=== PATIENT | female | born 1975 | race Caucasian/White ===

== ENCOUNTER 2017-07-06 02:06 | Emergency (ER) | payer MEDICARE, MEDICAID ==
[~2017-07-06] VITALS: Ht 175.3 cm; Wt 161.8 kg
[~2017-07-06 02:06] MED LIST: ABIL15TA; COGE1INJ; GLUC500T; HYDR25TA8; NABU500T; SYNT75TA; TRAZ50TA; Topiramate
[2017-07-06] MEDS ORDERED: FARX1TAB3 PO (02:21)
[2017-07-06 03:57] VITALS: BP 168/84
--- NOTE | 2017-07-06 08:40 | REP ---
Clinical: Trauma. Technique: AP view of the pelvis with neutral and frog lateral views of the right hip. Findings: No acute fracture dislocation. Skeletal structures, joint spaces, and surrounding soft tissues are intact. Mild chronic degenerative changes involving the left hip noted. Surrounding soft tissues unremarkable. Impression: No acute fracture or dislocation Signed by Barrett Hines MD 07/06/2017 08:32 A
== END 2017-07-06 03:58 | disposition home or self-care (01) ==
LOC: M ED 02:06
DX: S76.011A Strain of muscle, fascia and tendon of right hip, initial encounter (principal); W01.0XXA Fall on same level from slipping, tripping and stumbling without subsequent striking against object, initial encounter; Y92.9 Unspecified place or not applicable; Y93.01 Activity, walking, marching and hiking; Y99.9 Unspecified external cause status; F25.9 Schizoaffective disorder, unspecified; Z87.891 Personal history of nicotine dependence; Z79.899 Other long term (current) drug therapy; Z91.040 Latex allergy status; Z88.8 Allergy status to other drugs, medicaments and biological substances

== ENCOUNTER → 2017-10-23 | Outpatient (CLI) | payer MEDICARE, MEDICAID | LOC: M WHC 14:37 | DX: Z12.31 Encounter for screening mammogram for malignant neoplasm of breast (principal) | CPT/HCPCS: 77067 ==

== ENCOUNTER → 2018-01-21 | Outpatient (CLI) | payer MEDICARE, MEDICAID | LOC: M WHC 10:57 | DX: N83.202 Unspecified ovarian cyst, left side (principal); E66.01 Morbid (severe) obesity due to excess calories; N88.8 Other specified noninflammatory disorders of cervix uteri | CPT/HCPCS: 76830 ==

== ENCOUNTER 2018-05-26 20:23 | Emergency (ER) | payer MEDICARE, MEDICAID ==
[2018-05-26] MEDS: OXYCODONE/APAP 5MG/325MG(BULK FOR ED) 1 TABLET PO (22:06)
== END 2018-05-26 22:11 | disposition home or self-care (01) ==
LOC: M ED 20:23
DX: K08.89 Other specified disorders of teeth and supporting structures (principal); I10 Essential (primary) hypertension; Z87.891 Personal history of nicotine dependence; Z88.8 Allergy status to other drugs, medicaments and biological substances; Z91.040 Latex allergy status; Z79.899 Other long term (current) drug therapy; Z79.890 Hormone replacement therapy
CPT/HCPCS: 99283

== ENCOUNTER → 2018-08-07 | Outpatient (CLI) | payer MEDICARE ==
[~2018-08-07] MED LIST changes: +FARX1TAB3 PO; +Farxiga; +IBUP-1022 PO; +PERC5TAB12 PO; +VERA24TASA; +WELLTAB38 PO
[2018-08-07 13:10] LABS: ALBUMIN 3.4 GM/DL (3.2-5.2); ALT/SGPT 21 U/L (12-78); BILIRUBIN,TOTAL 0.3 MG/DL (0.2-1.0); BLOOD UREA NITROGEN 14 MG/DL (7-18); CALCIUM LEVEL 8.2 MG/DL (8.5-10.1); CARBON DIOXIDE LEVEL 25 MEQ/L (21-32); CHLORIDE LEVEL 110 MEQ/L (98-107); CHOLESTEROL LEVEL 137 MG/DL (<200); CHOLESTEROL RISK RATIO 3.113 (<5); GLOMERULAR FILTRATION RATE > 60.0 (>58); GLUCOSE, FASTING 103 MG/DL (70-100); HDL CHOLESTEROL 44 MG/DL (>40); LDL CHOLESTEROL 63 MG/DL (<100); NON-HDL-C 93 MG/DL; POTASSIUM SERUM 4.3 MEQ/L (3.5-5.1); SODIUM LEVEL 142 MEQ/L (136-145); THYROID STIMULATING HORMONE 0.891 uIU/ML (0.358-3.740); TOTAL PROTEIN 6.4 GM/DL (6.4-8.2); TRIGLYCERIDES LEVEL 148 MG/DL (<150)
[2018-08-07 15:32] LABS: HEMOGLOBIN A1c 6.5 %
== END ==
LOC: M WUC 09:51
PROVIDERS: ATTEND Internal Medicine
DX: I10 Essential (primary) hypertension (principal); E11.9 Type 2 diabetes mellitus without complications; E03.9 Hypothyroidism, unspecified

== ENCOUNTER → 2018-11-05 | Outpatient (REF) | payer MEDICARE, MEDICAID ==
[2018-11-07 14:21] LABS: HPV HYBRID CAPTURE II Positive (Negative)
== END ==
LOC: M SFHCWAGY 10:00
PROVIDERS: ATTEND Nurse Practitioner Women's Health
DX: Z12.4 Encounter for screening for malignant neoplasm of cervix (principal); R87.610 Atypical squamous cells of undetermined significance on cytologic smear of cervix (ASC-US)
CPT/HCPCS: 87624; G0123; G0463

== ENCOUNTER → 2018-11-08 | Outpatient (CLI) | payer MEDICARE, MEDICAID ==
[2018-11-08 10:03] LABS: ALBUMIN 3.3 GM/DL (3.2-5.2); ALT/SGPT 22 U/L (12-78); BILIRUBIN,TOTAL 0.2 MG/DL (0.2-1.0); BLOOD UREA NITROGEN 15 MG/DL (7-18); CALCIUM LEVEL 8.3 MG/DL (8.5-10.1); CARBON DIOXIDE LEVEL 26 MEQ/L (21-32); CHLORIDE LEVEL 109 MEQ/L (98-107); CHOLESTEROL LEVEL 150 MG/DL (<200); CHOLESTEROL RISK RATIO 3.409 (<5); CREATININE FOR GFR 0.61 MG/DL (0.55-1.30); GLOMERULAR FILTRATION RATE > 60.0 (>58); GLUCOSE, FASTING 112 MG/DL (70-100); HDL CHOLESTEROL 44 MG/DL (>40); LDL CHOLESTEROL 84 MG/DL (<100); NON-HDL-C 106 MG/DL; SODIUM LEVEL 142 MEQ/L (136-145); TOTAL PROTEIN 6.4 GM/DL (6.4-8.2); TRIGLYCERIDES LEVEL 112 MG/DL (<150)
[2018-11-08 11:12] LABS: HEMOGLOBIN A1c 6.3 %
== END ==
LOC: M WUC 08:21
PROVIDERS: ATTEND Internal Medicine
DX: I10 Essential (primary) hypertension (principal); E11.9 Type 2 diabetes mellitus without complications; E03.9 Hypothyroidism, unspecified; E78.5 Hyperlipidemia, unspecified

== ENCOUNTER → 2018-11-08 | Outpatient (REF) | payer MEDICARE, MEDICAID | LOC: M SFHCWAGY 15:26 | PROVIDERS: ATTEND Nurse Practitioner Women's Health | DX: R87.612 Low grade squamous intraepithelial lesion on cytologic smear of cervix (LGSIL) (principal); R87.810 Cervical high risk human papillomavirus (HPV) DNA test positive ==

== ENCOUNTER 2019-01-26 21:08 | Emergency (ER) | payer MEDICARE, MEDICAID ==
[~2019-01-26] VITALS: Ht 172.7 cm; Wt 145.4 kg
[2019-01-26 21:08] VITALS: BP 146/89
== END 2019-01-26 23:12 | disposition left against medical advice (07) ==
LOC: M ED 21:08
DX: K08.89 Other specified disorders of teeth and supporting structures (principal); Z53.21 Procedure and treatment not carried out due to patient leaving prior to being seen by health care provider

== ENCOUNTER 2019-02-06 07:48 | Emergency (ER) | payer MEDICARE, MEDICAID ==
[~2019-02-06] VITALS: Ht 175.3 cm; Wt 159.6 kg
[2019-02-06 07:49] VITALS: BP 153/91
[2019-02-06] MEDS ORDERED: CIPR500T3 (07:57)
[2019-02-06] MEDS ORDERED: OFLOSO OTIC (08:14)
[2019-02-06] MEDS ORDERED: NAPR-837 PO (08:16)
== END 2019-02-06 08:41 | disposition home or self-care (01) ==
LOC: M ED 07:48
DX: H60.92 Unspecified otitis externa, left ear (principal); I10 Essential (primary) hypertension; J45.909 Unspecified asthma, uncomplicated; E07.9 Disorder of thyroid, unspecified; E28.2 Polycystic ovarian syndrome; E78.00 Pure hypercholesterolemia, unspecified; F20.9 Schizophrenia, unspecified; Z79.899 Other long term (current) drug therapy; Z88.8 Allergy status to other drugs, medicaments and biological substances; Z91.040 Latex allergy status

== ENCOUNTER → 2019-02-25 | Outpatient (CLI) | payer MEDICARE, MEDICAID ==
[~2019-02-25] MED LIST changes: +CIPR500T3; +NAPR-837 PO; +OFLOSO OTIC
[2019-02-25 10:20] LABS: ALBUMIN 3.2 GM/DL (3.2-5.2); ALT/SGPT 26 U/L (12-78); BILIRUBIN,TOTAL 0.2 MG/DL (0.2-1.0); BLOOD UREA NITROGEN 12 MG/DL (7-18); CALCIUM LEVEL 8.3 MG/DL (8.5-10.1); CARBON DIOXIDE LEVEL 24 MEQ/L (21-32); CHLORIDE LEVEL 110 MEQ/L (98-107); CHOLESTEROL LEVEL 161 MG/DL (<200); CREATININE FOR GFR 0.58 MG/DL (0.55-1.30); GLOMERULAR FILTRATION RATE > 60.0 (>58); GLUCOSE, FASTING 124 MG/DL (70-100); HDL CHOLESTEROL 46 MG/DL (>40); LDL CHOLESTEROL 78 MG/DL (<100); NON-HDL-C 115 MG/DL; POTASSIUM SERUM 4.3 MEQ/L (3.5-5.1); SODIUM LEVEL 140 MEQ/L (136-145); TOTAL PROTEIN 6.5 GM/DL (6.4-8.2); TRIGLYCERIDES LEVEL 184 MG/DL (<150)
[2019-02-25 11:36] LABS: HEMOGLOBIN A1c 6.6 %
[2019-02-25 16:26] LABS: MALB URINE SIEMENS 23.6 MG/L; MAU/CREAT RATIO 13.4 MCG/MG (0.0-30.0)
== END ==
LOC: M WUC 08:10
PROVIDERS: ATTEND Internal Medicine
DX: I10 Essential (primary) hypertension (principal); E11.9 Type 2 diabetes mellitus without complications; E03.9 Hypothyroidism, unspecified; E78.5 Hyperlipidemia, unspecified

== ENCOUNTER → 2019-02-26 | Outpatient (CLI) | payer MEDICARE, MEDICAID ==
--- NOTE | 2019-02-26 15:14 | REPMRS ---
Patient History The patient states she had a clinical breast exam in 08/2018. Patient is nulliparous. Family history of breast cancer in paternal aunt, prostate cancer and colorectal cancer in paternal uncle, breast cancer in maternal aunt, ovarian cancer in maternal aunt. No Hormone Replacement Therapy Digital Woman Screen Mammo: February 26, 2019 - Exam #: [id number] Bilateral CC and MLO view(s) were taken. Technologist: Tammy Blanc, Technologist Prior study comparison: October 23, 2017, digital woman screen mammo performed at [facility]. July 28, 2016, digital woman screen mammo performed at [facility]. FINDINGS: There are scattered fibroglandular densities. There has been no change in the appearance of the mammogram from the prior studies. There is a mild amount of scattered fibroglandular density which is fairly symmetric. There is no interval development of dominant mass, architectural distortion, or grouped microcalcification suggestive of malignancy. 3-D tomosynthesis shows no additional findings. Assessment: BI-RADS/ACR category 1 mammogram. Negative Mammogram. Recommendation Breast MRI of both breasts in 6 months. Routine screening mammogram of both breasts in 1 year (for women over age 40). This patient's Lifetime Breast Cancer Risk is estimated at 24.2 %. Annual screening Breast MRI scanniing is recommended for patient's whose lifetime risk assessment is over 20%. This mammogram was interpreted with the aid of an FDA-approved computer-aided dectection system. Electronically Signed By: David Borja MD 02/26/19 1346
== END ==
LOC: M WHC 08:51
PROVIDERS: ATTEND Nurse Practitioner Women's Health
DX: Z12.31 Encounter for screening mammogram for malignant neoplasm of breast (principal)

== ENCOUNTER → 2019-06-09 | Outpatient (CLI) | payer MEDICARE, MEDICAID ==
[2019-06-09 12:41] LABS: BASO % 0.6 % (0.0-1.0); EOS # 0.2 10^3/uL (0.0-0.5); EOS % 2.9 % (0.0-3.0); HEMATOCRIT 42.8 % (36.0-47.0); LYMPH # 2.2 10^3/uL (1.5-5.0); LYMPH % 30.7 % (24.0-44.0); MEAN CORPUSCULAR HEMOGLOBIN 27.6 pg (27.0-33.0); MEAN CORPUSCULAR HGB CONC 30.4 g/dl (32.0-36.5); MEAN CORPUSCULAR VOLUME 90.9 fl (80.0-96.0); MONO # 0.4 10^3/uL (0.0-0.8); MONO % 5.8 % (0.0-5.0); NEUTROPHILS # 4.3 10^3/uL (1.5-8.5); NEUTROPHILS % 59.7 % (36.0-66.0); PLATELET COUNT, AUTOMATED 292 10^3/uL (150-450); RED BLOOD COUNT 4.71 10^6/uL (4.00-5.40); WHITE BLOOD COUNT 7.1 10^3/uL (4.0-10.0)
[2019-06-09 12:55] LABS: ALT/SGPT 25 U/L (12-78); BILIRUBIN,TOTAL 0.3 MG/DL (0.2-1.0); BLOOD UREA NITROGEN 12 MG/DL (7-18); CALCIUM LEVEL 9.1 MG/DL (8.5-10.1); CARBON DIOXIDE LEVEL 27 MEQ/L (21-32); CHLORIDE LEVEL 110 MEQ/L (98-107); CHOLESTEROL LEVEL 148 MG/DL (<200); CREATININE FOR GFR 0.67 MG/DL (0.55-1.30); GLOMERULAR FILTRATION RATE > 60.0 (>58); GLUCOSE, FASTING 105 MG/DL (70-100); POTASSIUM SERUM 4.1 MEQ/L (3.5-5.1); SODIUM LEVEL 141 MEQ/L (136-145); TRIGLYCERIDES LEVEL 136 MG/DL (<150)
[2019-06-09 12:56] LABS: ALBUMIN 3.5 GM/DL (3.2-5.2); CHOLESTEROL RISK RATIO 3.148 (<5); HDL CHOLESTEROL 47 MG/DL (>40); LDL CHOLESTEROL 74 MG/DL (<100); NON-HDL-C 101 MG/DL; TOTAL PROTEIN 6.5 GM/DL (6.4-8.2)
[2019-06-09 13:42] LABS: HEMOGLOBIN A1c 6.8 %
== END ==
LOC: M WUC 10:02
PROVIDERS: ATTEND Internal Medicine
DX: I10 Essential (primary) hypertension (principal); E78.5 Hyperlipidemia, unspecified; E03.9 Hypothyroidism, unspecified; E11.9 Type 2 diabetes mellitus without complications

== ENCOUNTER → 2019-09-12 | Outpatient (CLI) | payer MEDICARE ==
[2019-09-12 12:47] LABS: BASO % 0.4 % (0.0-1.0); EOS # 0.3 10^3/uL (0.0-0.5); EOS % 3.5 % (0.0-3.0); HEMATOCRIT 43.4 % (36.0-47.0); HEMOGLOBIN 12.7 g/dl (12.0-15.5); LYMPH # 2.6 10^3/uL (1.5-5.0); MEAN CORPUSCULAR HEMOGLOBIN 26.6 pg (27.0-33.0); MEAN CORPUSCULAR HGB CONC 29.3 g/dl (32.0-36.5); MEAN CORPUSCULAR VOLUME 90.8 fl (80.0-96.0); MONO # 0.4 10^3/uL (0.0-0.8); MONO % 5.4 % (0.0-5.0); NEUTROPHILS # 3.9 10^3/uL (1.5-8.5); NEUTROPHILS % 54.3 % (36.0-66.0); PLATELET COUNT, AUTOMATED 292 10^3/uL (150-450); RED BLOOD COUNT 4.78 10^6/uL (4.00-5.40); WHITE BLOOD COUNT 7.2 10^3/uL (4.0-10.0)
[2019-09-12 13:06] LABS: HEMOGLOBIN A1c 6.9 %
[2019-09-12 13:20] LABS: ALBUMIN 3.3 GM/DL (3.2-5.2); ALT/SGPT 21 U/L (12-78); BILIRUBIN,TOTAL 0.2 MG/DL (0.2-1.0); BLOOD UREA NITROGEN 10 MG/DL (7-18); CALCIUM LEVEL 8.2 MG/DL (8.5-10.1); CARBON DIOXIDE LEVEL 28 MEQ/L (21-32); CHLORIDE LEVEL 106 MEQ/L (98-107); CHOLESTEROL LEVEL 148 MG/DL (<200); CHOLESTEROL RISK RATIO 4.111 (<5); GLOMERULAR FILTRATION RATE > 60.0 (>58); GLUCOSE, FASTING 115 MG/DL (70-100); HDL CHOLESTEROL 36 MG/DL (>40); LDL CHOLESTEROL 87 MG/DL (<100); NON-HDL-C 112 MG/DL; POTASSIUM SERUM 4.6 MEQ/L (3.5-5.1); SODIUM LEVEL 140 MEQ/L (136-145); TOTAL PROTEIN 6.6 GM/DL (6.4-8.2); TRIGLYCERIDES LEVEL 127 MG/DL (<150)
== END ==
LOC: M WUC 08:59
PROVIDERS: ATTEND Internal Medicine
DX: E78.5 Hyperlipidemia, unspecified (principal); E03.9 Hypothyroidism, unspecified; E11.9 Type 2 diabetes mellitus without complications; I10 Essential (primary) hypertension

== ENCOUNTER → 2020-11-24 | Outpatient (CLI) | payer MEDICARE, MEDICAID, OTHER ==
--- NOTE | 2020-11-24 13:03 | REPMRS ---
Patient History The patient states she had a clinical breast exam in 11/2020 Patient is nulliparous. Family history of breast cancer in paternal aunt, prostate cancer and colorectal cancer in paternal uncle, breast cancer in maternal aunt, ovarian cancer in maternal aunt, ovarian cancer at age 58 in maternal aunt. No Hormone Replacement Therapy Digital Woman Screen Mammo: November 24, 2020 - Exam #: [id number] Bilateral CC and MLO view(s) were taken. Technologist: Massiel Bello, Technologist Prior study comparison: February 26, 2019, bilateral digital woman screen mammo performed at [facility]. October 23, 2017, digital woman screen mammo performed at [facility]. July 28, 2016, digital woman screen mammo performed at [facility]. FINDINGS: The breast tissue is almost entirely fat. The Volpara volumetric breast density category is: A. There has been no change in the appearance of the mammogram from the prior studies. There is no interval development of dominant mass, architectural distortion, or grouped microcalcification typical of malignancy. 3-D tomosynthesis shows no additional findings. Assessment: BI-RADS/ACR category 1 mammogram. Negative Mammogram. Recommendation Breast MRI of both breasts in 6 months. Routine screening mammogram of both breasts in 1 year (for women over age 40).Annual screening Breast MRI scanniing is recommended for patient's whose lifetime risk assessment is over 20%. This patient's [facility] Lifetime Breast Cancer RIsk is estimated at 24.0 %. This mammogram was interpreted with the aid of an FDA-approved computer-aided dectection system. Electronically Signed By: David Borja MD 11/24/20 2111
== END ==
LOC: M WHC 10:11
PROVIDERS: ATTEND Nurse Practitioner Women's Health
DX: Z12.4 Encounter for screening for malignant neoplasm of cervix (principal); Z12.31 Encounter for screening mammogram for malignant neoplasm of breast; R87.618 Other abnormal cytological findings on specimens from cervix uteri
CPT/HCPCS: 77063; 77067; 87624; G0123; G0463

== ENCOUNTER → 2020-11-29 | Outpatient (REF) | payer MEDICARE ==
[2020-11-29 17:58] LABS: ALBUMIN 3.6 GM/DL (3.2-5.2); ALT/SGPT 19 U/L (12-78); BILIRUBIN,TOTAL 0.2 MG/DL (0.2-1.0); BLOOD UREA NITROGEN 17 MG/DL (7-18); CALCIUM LEVEL 8.9 MG/DL (8.5-10.1); CARBON DIOXIDE LEVEL 29 MEQ/L (21-32); CHLORIDE LEVEL 105 MEQ/L (98-107); CHOLESTEROL LEVEL 166 MG/DL (<200); CHOLESTEROL RISK RATIO 3.074 (<5); CREATININE FOR GFR 0.54 MG/DL (0.55-1.30); GLOMERULAR FILTRATION RATE > 60.0 (>58); GLUCOSE, FASTING 140 MG/DL (70-100); HDL CHOLESTEROL 54 MG/DL (>40); LDL CHOLESTEROL 86 MG/DL (<100); NON-HDL-C 112 MG/DL; POTASSIUM SERUM 4.4 MEQ/L (3.5-5.1); SODIUM LEVEL 140 MEQ/L (136-145); TOTAL PROTEIN 6.9 GM/DL (6.4-8.2); TRIGLYCERIDES LEVEL 128 MG/DL (<150)
[2020-11-29 18:46] LABS: HEMOGLOBIN A1c 6.2 %
== END ==
LOC: M LAB REF 15:40
PROVIDERS: ATTEND Family Medicine Addiction Medicine
DX: E11.69 Type 2 diabetes mellitus with other specified complication (principal)

== ENCOUNTER → 2021-01-18 | Outpatient (CLI) | payer MEDICARE, MEDICAID, OTHER ==
[2021-01-18 17:32] LABS: BASO % 0.5 % (0.0-1.0); EOS # 0.3 10^3/uL (0.0-0.5); EOS % 3.6 % (0.0-3.0); HEMATOCRIT 37.3 % (36.0-47.0); HEMOGLOBIN 11.1 g/dl (12.0-15.5); LYMPH # 2.7 10^3/uL (1.5-5.0); LYMPH % 33.7 % (24.0-44.0); MEAN CORPUSCULAR HEMOGLOBIN 27.1 pg (27.0-33.0); MEAN CORPUSCULAR HGB CONC 29.8 g/dl (32.0-36.5); MEAN CORPUSCULAR VOLUME 91.2 fl (80.0-96.0); MONO # 0.5 10^3/uL (0.0-0.8); MONO % 6.7 % (2.0-8.0); NEUTROPHILS # 4.4 10^3/uL (1.5-8.5); NEUTROPHILS % 55.1 % (36.0-66.0); PLATELET COUNT, AUTOMATED 280 10^3/uL (150-450); RED BLOOD COUNT 4.09 10^6/uL (4.00-5.40)
[2021-01-18 17:58] LABS: HEMOGLOBIN A1c 6.6 %
[2021-01-18 18:04] LABS: ALBUMIN 3.4 GM/DL (3.2-5.2); ALT/SGPT 22 U/L (12-78); BILIRUBIN,DIRECT < 0.1 MG/DL (0.0-0.2); BILIRUBIN,TOTAL 0.3 MG/DL (0.2-1.0); BLOOD UREA NITROGEN 13 MG/DL (7-18); CALCIUM LEVEL 8.8 MG/DL (8.5-10.1); CARBON DIOXIDE LEVEL 31 MEQ/L (21-32); CHLORIDE LEVEL 105 MEQ/L (98-107); CHOLESTEROL LEVEL 132 MG/DL (<200); CREATININE FOR GFR 0.53 MG/DL (0.55-1.30); GLOMERULAR FILTRATION RATE > 60.0 (>58); GLUCOSE, FASTING 88 MG/DL (70-100); HDL CHOLESTEROL 44 MG/DL (>40); LDL CHOLESTEROL 62 MG/DL (<100); NON-HDL-C 88 MG/DL; POTASSIUM SERUM 3.9 MEQ/L (3.5-5.1); SODIUM LEVEL 141 MEQ/L (136-145); TOTAL PROTEIN 6.8 GM/DL (6.4-8.2); TRIGLYCERIDES LEVEL 129 MG/DL (<150)
== END ==
LOC: M PLALAB 13:35
PROVIDERS: ATTEND Psychiatry & Neurology Psychiatry
DX: F28 Other psychotic disorder not due to a substance or known physiological condition (principal); F31.89 Other bipolar disorder; F41.1 Generalized anxiety disorder; Z79.899 Other long term (current) drug therapy

== ENCOUNTER → 2021-02-01 | Outpatient (CLI) | payer MEDICARE, MEDICAID ==
--- NOTE | 2021-02-01 15:30 | REP ---
INDICATION: PAIN IN RIGHT KNEE,PAIN IN RIGHT KNEE COMPARISON: 02/13/2015 left knee only TECHNIQUE: Five views each knee FINDINGS: Right knee: Significant tricompartmental marginal osteophytosis is present with medial compartmental narrowing and asymmetric patellofemoral joint space narrowing. There is medial compartmental subchondral sclerosis as well. There is no acute fracture. Left knee: There is tricompartmental marginal osteophytosis particularly affecting the medial compartment where there is mild medial compartmental narrowing all of which has increased from the prior exam. Asymmetric patellofemoral joint space narrowing is also seen on the left and also increased somewhat from the prior exam. There is no acute fracture. IMPRESSION: Chronic changes as described above. <Electronically signed by Hipolito Jones > 02/01/21 2136
== END ==
LOC: M RAD 14:15
PROVIDERS: ATTEND Family Medicine Addiction Medicine
DX: M25.761 Osteophyte, right knee (principal); M25.762 Osteophyte, left knee

== ENCOUNTER 2021-03-07 17:17 | Emergency (ER) | payer MEDICARE, MEDICAID ==
[~2021-03-07] VITALS: Ht 175.3 cm; Wt 174.4 kg
[2021-03-07] MEDS ORDERED: LEXA1TAB2 (17:29)
[2021-03-07] MEDS ORDERED: LEVO125T4 (17:29)
[2021-03-07] MEDS ORDERED: PALI1TAB2 (17:29)
[2021-03-07] MEDS ORDERED: VERA120T9 (17:29)
[2021-03-07] MEDS ORDERED: GABA-283 (17:29)
[2021-03-07 18:22] LABS: HEMATOCRIT 37.8 % (36.0-47.0); HEMOGLOBIN 11.6 g/dl (12.0-15.5); MEAN CORPUSCULAR HGB CONC 30.7 g/dl (32.0-36.5); MEAN CORPUSCULAR VOLUME 88.1 fl (80.0-96.0); PLATELET COUNT, AUTOMATED 256 10^3/uL (150-450); RED BLOOD COUNT 4.29 10^6/uL (4.00-5.40); WHITE BLOOD COUNT 7.9 10^3/uL (4.0-10.0)
[2021-03-07 18:49] LABS: HCG, SERUM QUALITATIVE NEGATIVE (NEGATIVE)
[2021-03-07 18:56] LABS: ACETAMINOPHEN LEVEL < 2.0 UG/ML (10.0-30.0); ALBUMIN 3.5 GM/DL (3.2-5.2); ALT/SGPT 21 U/L (12-78); BILIRUBIN,DIRECT < 0.1 MG/DL (0.0-0.2); BILIRUBIN,TOTAL 0.2 MG/DL (0.2-1.0); BLOOD UREA NITROGEN 13 MG/DL (7-18); CALCIUM LEVEL 8.3 MG/DL (8.5-10.1); CARBON DIOXIDE LEVEL 30 MEQ/L (21-32); CHLORIDE LEVEL 106 MEQ/L (98-107); CREATININE FOR GFR 0.63 MG/DL (0.55-1.30); ETHYL ALCOHOL (ETHANOL) < 0.003 % (0.000-0.010); GLOMERULAR FILTRATION RATE > 60.0 (>58); GLUCOSE, FASTING 136 MG/DL (70-100); POTASSIUM SERUM 3.9 MEQ/L (3.5-5.1); SALICYLATE LEVEL < 1.7 MG/DL (5.0-30.0); SODIUM LEVEL 141 MEQ/L (136-145); TOTAL PROTEIN 6.9 GM/DL (6.4-8.2)
--- NOTE | 2021-03-07 21:20 | REPVR ---
PROCEDURE INFORMATION: Exam: CT Head Without Contrast Exam date and time: 03/07/2021 7:53 PM Age: 45 years old Clinical indication: Altered mental status/memory loss TECHNIQUE: Imaging protocol: Computed tomography of the head without contrast. Radiation optimization: All CT scans at this facility use at least one of these dose optimization techniques: automated exposure control; mA and/or kV adjustment per patient size (includes targeted exams where dose is matched to clinical indication); or iterative reconstruction. COMPARISON: No relevant prior studies available. FINDINGS: Brain: Unremarkable. No hemorrhage or acute infarction. Unremarkable white matter. No midline shift or mass effect. Cerebral ventricles: No ventriculomegaly. Paranasal sinuses: Visualized sinuses are clear. Mastoid air cells: Mastoid air cells are clear. Bones/joints: Unremarkable. No acute fracture. Soft tissues: Unremarkable. IMPRESSION: No acute intracranial abnormality. Electronically signed by: Kip Peterson On 03/07/2021 21:20:33 PM
[2021-03-07 21:25] LABS: AMPHETAMINES LEVEL URINE NEGATIVE (NEGATIVE); BARBITURATES URINE NEGATIVE (NEGATIVE); BENZODIAZEPINES URINE NEGATIVE (NEGATIVE); CANNABINOIDS URINE NEGATIVE (NEGATIVE); COCAINE METABOLITE URINE NEGATIVE (NEGATIVE); METHADONE URINE NEGATIVE (NEGATIVE); OPIATES URINE NEGATIVE (NEGATIVE); PHENCYCLIDINE URINE NEGATIVE (NEGATIVE)
[2021-03-07] MEDS ORDERED: traZODone 50 MG TAB PO ONE (22:35)
[2021-03-07 23:58] VITALS: BP 133/60
== END 2021-03-08 00:03 | disposition home or self-care (01) ==
LOC: M ED 17:17
DX: F25.9 Schizoaffective disorder, unspecified (principal)

== ENCOUNTER → 2021-07-22 | Outpatient (CLI) | payer MEDICARE, MEDICAID ==
[~2021-07-22] MED LIST changes: +GABA-283; +LEVO125T4; +LEXA1TAB2; +PALI1TAB2; +VERA120T9; +VERA240T65; -VERA24TASA
--- NOTE | 2021-07-25 19:16 | SLEEPCENT ---
DATE: 07/22/2021 ORDERED BY: Alexa Nguyen NP Nocturnal polysomnography was performed for evaluation of sleep physiology in this patient with a history of ZAHRAA in the past. Seven hours and 20 minutes of data were reviewed. There were 337 minutes of sleep identified. Sleep latency was normal at 14 minutes. REM sleep was delayed at 344.5 minutes. Sleep architecture showed poor progression and fragmentation. There was one REM cycle late in the study. Overall sleep efficiency was 78.1%. The electrocardiogram showed a sinus rhythm with an average heart rate of 64 beats per minute. EEG showed normal waveforms for wake and sleep. There were 377 respiratory events identified of 10 seconds in duration or greater for an apnea-hypopnea index of 67.1. The events were obstructive, not exclusive to sleep stage nor body posture. Arousals from respiratory events occurred 17.6 times per hour, and oxygen desaturations were seen into the low 80s. There was some limb activity noted in the EMG leads but limb movement arousal index was only 1.1. IMPRESSION: Obstructive sleep apnea syndrome (G47.33). Apnea-hypopnea index 67.1. RECOMMENDATION: The patient should be encouraged to return to [facility] at the earliest convenience for pressure therapy. In the interim, alcohol and sedative avoidance should be practiced and caution exercised during the operation of motor vehicles. cc: Waldo Garcia MD
== END ==
LOC: M SLEEP 20:00
PROVIDERS: ATTEND Nurse Practitioner Adult Health
DX: G47.33 Obstructive sleep apnea (adult) (pediatric) (principal)

== ENCOUNTER → 2021-10-08 | Outpatient (CLI) | payer MEDICARE, MEDICAID | LOC: M SLEEP 20:00 | PROVIDERS: ATTEND Nurse Practitioner Adult Health | DX: G47.33 Obstructive sleep apnea (adult) (pediatric) (principal) ==

== ENCOUNTER 2021-11-06 17:04 | Emergency (ER) | payer MEDICARE, MEDICAID ==
[~2021-11-06] VITALS: Ht 175.3 cm; Wt 176.6 kg
[2021-11-06] MEDS ORDERED: NYSTATIN 100,000 UNITS/GM TOPICAL PWD 15 GM TOP STA (19:37)
[2021-11-06] MEDS ORDERED: ACETAMINOPHEN 500 MG TAB PO ONE (19:40)
[2021-11-06] MEDS ORDERED: NEOSPORIN OINT 0.9 GM PKT TOP ONE (19:40)
[2021-11-06] MEDS ORDERED: BENZ-52 PO (20:56)
[2021-11-06] MEDS ORDERED: FARX1TAB5 PO (20:56)
[2021-11-06] MEDS ORDERED: VERA120T67 PO (20:56)
[2021-11-06] MEDS ORDERED: TRAZ-252 PO (20:56)
[2021-11-06] MEDS ORDERED: ATIV1TAB10 PO (20:56)
[2021-11-06] MEDS ORDERED: BACI500O21 TOP (21:45)
[2021-11-06] MEDS ORDERED: NYST1POW9 TOP (21:45)
[2021-11-06 21:52] VITALS: BP 129/63
== END 2021-11-06 21:55 | disposition home or self-care (01) ==
LOC: M ED 17:04
DX: S50.319A Abrasion of unspecified elbow, initial encounter (principal); M25.552 Pain in left hip; M25.562 Pain in left knee; W18.30XA Fall on same level, unspecified, initial encounter; B37.2 Candidiasis of skin and nail; E11.9 Type 2 diabetes mellitus without complications; E78.5 Hyperlipidemia, unspecified; I10 Essential (primary) hypertension; K21.9 Gastro-esophageal reflux disease without esophagitis; E28.2 Polycystic ovarian syndrome; Y92.009 Unspecified place in unspecified non-institutional (private) residence as the place of occurrence of the external cause; Y93.9 Activity, unspecified; Y99.9 Unspecified external cause status; Z79.4 Long term (current) use of insulin; Z79.899 Other long term (current) drug therapy; Z91.040 Latex allergy status; Z88.8 Allergy status to other drugs, medicaments and biological substances

== ENCOUNTER 2021-11-29 16:00 | Emergency (ER) | payer MEDICARE, MEDICAID ==
[~2021-11-29] VITALS: Ht 175.3 cm; Wt 173.6 kg
[~2021-11-29 16:00] MED LIST changes: +ATIV1TAB10 PO; +BACI500O21 TOP; +BENZ-52 PO; +FARX1TAB5 PO; +NYST1POW9 TOP; +TRAZ-252 PO; +VERA120T67 PO
== END 2021-11-29 17:20 | disposition left against medical advice (07) ==
LOC: M ED 16:00
DX: Z53.21 Procedure and treatment not carried out due to patient leaving prior to being seen by health care provider (principal)

== ENCOUNTER 2022-01-28 20:54 | Emergency (ER) | payer MEDICARE, MEDICAID ==
[~2022-01-28] VITALS: Ht 172.7 cm; Wt 180.3 kg
[2022-01-28 20:54] VITALS: BP 170/92
== END 2022-01-29 00:16 | disposition left against medical advice (07) ==
LOC: M ED 20:54
DX: Z53.21 Procedure and treatment not carried out due to patient leaving prior to being seen by health care provider (principal)

== ENCOUNTER → 2022-08-18 | Outpatient (REF) | payer MEDICARE, MEDICAID ==
[2022-08-18 13:54] LABS: HEMOGLOBIN A1c 8.1 % (4.0-6.0)
[2022-08-18 14:10] LABS: ALBUMIN 3.3 G/DL (3.2-5.2); ALKALINE PHOSPHATASE 143 U/L (46-116); ALT/SGPT 17 U/L (7.0-40); AST/SGOT 18 U/L (<34); BILIRUBIN,TOTAL 0.2 MG/DL (0.3-1.2); BLOOD UREA NITROGEN 14 MG/DL (9-23); CALCIUM LEVEL 8.7 MG/DL (8.5-10.1); CARBON DIOXIDE LEVEL 32 MMOL/L (20-31); CHLORIDE LEVEL 100 MMOL/L (98-107); CHOLESTEROL LEVEL 152 MG/DL (<200); CHOLESTEROL RISK RATIO 2.65 (<5); CREATININE FOR GFR 0.58 MG/DL (0.55-1.30); GLOMERULAR FILTRATION RATE > 60.0 (>58); GLUCOSE, FASTING 203 MG/DL (60-100); HDL CHOLESTEROL 57.2 MG/DL (>40); LDL CHOLESTEROL 78.4 MG/DL (<100); NON-HDL-C 95 MG/DL; POTASSIUM SERUM 4.4 MMOL/L (3.5-5.1); SODIUM LEVEL 139 MMOL/L (136-145); THYROID STIMULATING HORMONE 3.406 uIU/ML (0.55-4.78); TOTAL PROTEIN 6.7 G/DL (5.7-8.2); TRIGLYCERIDES LEVEL 82 MG/DL (<150)
== END ==
LOC: M LAB REF 12:02
PROVIDERS: ATTEND Family Medicine Addiction Medicine
DX: E11.9 Type 2 diabetes mellitus without complications (principal)

== ENCOUNTER → 2022-09-26 | Outpatient (CLI) | payer MEDICARE, MEDICAID ==
[~2022-09-26] MED LIST changes: +ALBU8.5H INH; +ARIP1TAB43 PO; -BENZ-52 PO; +BENZ1TAB5 PO; +BUSP5TA PO; -GABA-283; +GABA-283 PO; +HYDR-3713 PO; -LEVO125T4; +LEVO125T4 PO; +LEXA1TAB2 PO; +LISI20TA33 PO; +PRAV20TA2 PO; +SEMA3TAB4 PO; +SITA50TAB PO; +VERA240T64 PO; +ZALE10CA PO
== END ==
LOC: M LABSMTC 10:07
PROVIDERS: ATTEND Anesthesiology
DX: Z01.818 Encounter for other preprocedural examination (principal)

== ENCOUNTER → 2022-09-26 | Outpatient (REF) | payer MEDICARE, MEDICAID ==
[2022-09-26 12:36] LABS: ALBUMIN 3.2 G/DL (3.2-5.2); ALKALINE PHOSPHATASE 124 U/L (46-116); ALT/SGPT 22 U/L (7.0-40); AST/SGOT 12 U/L (<34); BILIRUBIN,TOTAL 0.4 MG/DL (0.3-1.2); BLOOD UREA NITROGEN 20 MG/DL (9-23); CARBON DIOXIDE LEVEL 28 MMOL/L (20-31); CHLORIDE LEVEL 102 MMOL/L (98-107); CHOLESTEROL LEVEL 150 MG/DL (<200); CHOLESTEROL RISK RATIO 2.85 (<5); CREATININE FOR GFR 0.62 MG/DL (0.55-1.30); GLOMERULAR FILTRATION RATE > 60.0 (>58); GLUCOSE, FASTING 207 MG/DL (60-100); HDL CHOLESTEROL 52.6 MG/DL (>40); LDL CHOLESTEROL 75.2 MG/DL (<100); NON-HDL-C 97 MG/DL; POTASSIUM SERUM 4.9 MMOL/L (3.5-5.1); SODIUM LEVEL 138 MMOL/L (136-145); THYROID STIMULATING HORMONE 1.915 uIU/ML (0.55-4.78); TOTAL PROTEIN 6.8 G/DL (5.7-8.2); TRIGLYCERIDES LEVEL 111 MG/DL (<150)
[2022-09-26 12:56] LABS: HEMOGLOBIN A1c 8.5 % (4.0-6.0)
== END ==
LOC: M LAB REF 11:39
PROVIDERS: ATTEND Family Medicine Addiction Medicine
DX: E11.9 Type 2 diabetes mellitus without complications (principal)

== ENCOUNTER 2022-09-29 06:14 | Day surgery (SDC) | payer MEDICARE, MEDICAID ==
[~2022-09-29] VITALS: Ht 172.7 cm; Wt 183.2 kg
[~2022-09-29 06:14] MED LIST changes: +NS 1,000 ML IV ONE
[2022-09-29] MEDS ORDERED: LIDOCAINE 2% 100MG/5ML SDV (FOR ANES.) As Ordered ONE (07:12)
[2022-09-29] MEDS ORDERED: propofoL 200 MG/20 ML VIAL As Ordered ONE ×2 (07:12→08:43)
[2022-09-29] MEDS ORDERED: fentaNYL 100 MCG/2 ML INJECTION As Ordered ONE (07:13)
[2022-09-29 09:40] VITALS: BP 147/88
== END 2022-09-29 09:55 | disposition home or self-care (01) ==
LOC: M OPP 06:14
PROVIDERS: ATTEND Internal Medicine Gastroenterology
DX: Z80.0 Family history of malignant neoplasm of digestive organs (principal); D12.0 Benign neoplasm of cecum; K57.30 Diverticulosis of large intestine without perforation or abscess without bleeding; K64.8 Other hemorrhoids; K31.7 Polyp of stomach and duodenum; I10 Essential (primary) hypertension; E78.5 Hyperlipidemia, unspecified; E11.9 Type 2 diabetes mellitus without complications; J45.909 Unspecified asthma, uncomplicated; F25.9 Schizoaffective disorder, unspecified; Z79.02 Long term (current) use of antithrombotics/antiplatelets; Z79.51 Long term (current) use of inhaled steroids; Z79.84 Long term (current) use of oral hypoglycemic drugs; Z79.890 Hormone replacement therapy; Z79.891 Long term (current) use of opiate analgesic; Z79.899 Other long term (current) drug therapy; Z91.040 Latex allergy status; Z80.3 Family history of malignant neoplasm of breast
CPT/HCPCS: 43251; 45385; 88305; J3010

== ENCOUNTER → 2022-10-31 | Outpatient (CLI) | payer MEDICARE, MEDICAID ==
[~2022-10-31] MED LIST changes: -NS 1,000 ML IV ONE
== END ==
LOC: M WHC 08:39
PROVIDERS: ATTEND Nurse Practitioner Family
DX: Z12.31 Encounter for screening mammogram for malignant neoplasm of breast (principal)

== ENCOUNTER → 2022-10-31 | Outpatient (REF) | payer MEDICARE, MEDICAID | LOC: M SFHCWAGY 10:47 | PROVIDERS: ATTEND Nurse Practitioner Family | DX: Z12.4 Encounter for screening for malignant neoplasm of cervix (principal); R87.610 Atypical squamous cells of undetermined significance on cytologic smear of cervix (ASC-US); R87.810 Cervical high risk human papillomavirus (HPV) DNA test positive | CPT/HCPCS: 87624; G0123 ==

== ENCOUNTER → 2022-11-07 | Outpatient (REF) | payer MEDICARE, MEDICAID | LOC: M SMT 12:49 | PROVIDERS: ATTEND Nurse Practitioner Family | DX: R30.9 Painful micturition, unspecified (principal) ==

== ENCOUNTER → 2022-11-17 | Outpatient (REF) | payer MEDICARE, MEDICAID ==
[~2022-11-17] MED LIST changes: +KETO2CR TOP; +OFLO5DRO OD
== END ==
LOC: M SFHCWAGY 10:46
PROVIDERS: ATTEND Advanced Practice Midwife
DX: R87.610 Atypical squamous cells of undetermined significance on cytologic smear of cervix (ASC-US) (principal)

== ENCOUNTER 2023-01-11 12:37 | Emergency (ER) | payer MEDICARE, MEDICAID ==
[~2023-01-11] VITALS: Ht 172.7 cm; Wt 184.3 kg
[~2023-01-11 12:37] MED LIST changes: -KETO2CR TOP; -OFLO5DRO OD
[2023-01-11 12:38] VITALS: BP 134/61
[2023-01-11] MEDS ORDERED: NS 1,000 ML IV ONE ×2 (14:45→16:30)
[2023-01-11 15:26] LABS: BASO % 0.4 % (0.0-1.0); EOS # 0.1 10^3/uL (0.0-0.5); EOS % 1.5 % (0.0-3.0); HEMATOCRIT 40.6 % (36.0-47.0); LYMPH # 2.7 10^3/uL (1.5-5.0); LYMPH % 28.9 % (24.0-44.0); MEAN CORPUSCULAR HEMOGLOBIN 26.8 pg (27.0-33.0); MEAN CORPUSCULAR HGB CONC 29.6 g/dl (32.0-36.5); MEAN CORPUSCULAR VOLUME 90.8 fl (80.0-96.0); MONO # 0.5 10^3/uL (0.0-0.8); MONO % 5.4 % (2.0-8.0); NEUTROPHILS # 5.8 10^3/uL (1.5-8.5); NEUTROPHILS % 63.5 % (36.0-66.0); PLATELET COUNT, AUTOMATED 310 10^3/uL (150-450); RED BLOOD COUNT 4.47 10^6/uL (4.00-5.40); VENOUS BASE EXCESS 3.9 (-2.0-2.0); VENOUS O2 SATURATION 85.2 % (60.0-80.0); VENOUS PARTIAL PRESSURE O2 51.2 mmHg (30.0-50.0); VENOUS PH 7.346 UNITS (7.330-7.430); VENOUS STANDARD HCO3 27.6 MMOL/L; VENOUS TOTAL CO2 32.8 MMOL/L (24.0-28.0); WHITE BLOOD COUNT 9.2 10^3/uL (4.0-10.0)
[2023-01-11 15:59] LABS: ALBUMIN 3.3 G/DL (3.2-5.2); ALKALINE PHOSPHATASE 115 U/L (46-116); ALT/SGPT 15 U/L (7.0-40); AST/SGOT 16 U/L (<34); BILIRUBIN,DIRECT < 0.1 MG/DL (<0.4); BILIRUBIN,TOTAL 0.3 MG/DL (0.3-1.2); BLOOD UREA NITROGEN 45 MG/DL (9-23); CALCIUM LEVEL 8.2 MG/DL (8.5-10.1); CARBON DIOXIDE LEVEL 32 MMOL/L (20-31); CHLORIDE LEVEL 101 MMOL/L (98-107); CK-MB VALUE MASS < 1.0 NG/ML (<3.6); CREATININE FOR GFR 1.29 MG/DL (0.55-1.30); GLOMERULAR FILTRATION RATE 47.2 (>58); GLUCOSE, FASTING 182 MG/DL (60-100); MAGNESIUM LEVEL 1.9 MG/DL (1.8-2.4); POTASSIUM SERUM 5.6 MMOL/L (3.5-5.1); SODIUM LEVEL 136 MMOL/L (136-145); TOTAL PROTEIN 6.7 G/DL (5.7-8.2)
[2023-01-11 16:03] LABS: THYROID STIMULATING HORMONE 1.071 uIU/ML (0.55-4.78)
[2023-01-11 16:10] LABS: CPK CREATINE PHOSPHOKINASE 106 U/L (34-145); MB/CK RELATIVE INDEX 0.94 (< OR =4)
[2023-01-11] MEDS ORDERED: OFLO5DRO OD (18:37)
[2023-01-11] MEDS ORDERED: KETO2CR TOP (18:37)
== END 2023-01-11 19:09 | disposition home or self-care (01) ==
LOC: M ED 12:37
DX: E86.0 Dehydration (principal); E87.5 Hyperkalemia; H10.31 Unspecified acute conjunctivitis, right eye; B35.6 Tinea cruris; F17.200 Nicotine dependence, unspecified, uncomplicated; E28.2 Polycystic ovarian syndrome; Z91.040 Latex allergy status; Z88.8 Allergy status to other drugs, medicaments and biological substances; Z79.52 Long term (current) use of systemic steroids; Z79.811 Long term (current) use of aromatase inhibitors; Z79.899 Other long term (current) drug therapy

== ENCOUNTER 2023-02-13 14:35 | Emergency (ER) | payer MEDICARE, MEDICAID ==
[~2023-02-13] VITALS: Ht 172.7 cm; Wt 177.3 kg
[~2023-02-13 14:35] MED LIST changes: +KETO2CR TOP; +OFLO5DRO OD
[2023-02-13 14:36] VITALS: BP 150/90; TEMP 96.7; O2SAT 96
[2023-02-13] MEDS ORDERED: POLYTRIM OPTH DROPS 10ML OD ONE (16:25)
[2023-02-13] MEDS ORDERED: POLYSOL OP (16:26)
== END 2023-02-13 16:32 | disposition home or self-care (01) ==
LOC: M ED 14:35
DX: H10.31 Unspecified acute conjunctivitis, right eye (principal); E11.9 Type 2 diabetes mellitus without complications; I10 Essential (primary) hypertension; G47.33 Obstructive sleep apnea (adult) (pediatric); E03.9 Hypothyroidism, unspecified; J45.909 Unspecified asthma, uncomplicated; E78.5 Hyperlipidemia, unspecified; Z88.8 Allergy status to other drugs, medicaments and biological substances; Z91.040 Latex allergy status

== ENCOUNTER → 2023-03-26 | Outpatient (CLI) | payer MEDICARE, MEDICAID ==
[~2023-03-26] MED LIST changes: -GABA-283 PO; +GABA-284 PO; +POLYSOL OP
== END ==
LOC: M WHC 08:54
PROVIDERS: ATTEND Nurse Practitioner Family
DX: R10.2 Pelvic and perineal pain (principal)

== ENCOUNTER 2023-06-29 11:24 | Emergency (ER) | payer MEDICARE, MEDICAID ==
[~2023-06-29] VITALS: Ht 180.3 cm; Wt 185.0 kg
[2023-06-29] MEDS ORDERED: NS 1,000 ML IV ONE (12:00)
[2023-06-29 12:38] LABS: VENOUS BASE EXCESS 2.6 (-2.0-2.0); VENOUS HCO3 27.9 MMOL/L (23.0-27.0); VENOUS O2 SATURATION 97.5 % (60.0-80.0); VENOUS PARTIAL PRESSURE CO2 45.5 mmHg (38.0-50.0); VENOUS PARTIAL PRESSURE O2 97.8 mmHg (30.0-50.0); VENOUS PH 7.405 UNITS (7.330-7.430); VENOUS STANDARD HCO3 26.8 MMOL/L; VENOUS TOTAL CO2 29.3 MMOL/L (24.0-28.0)
[2023-06-29 13:00] LABS: APPEARANCE, URINE HAZY (CLEAR); BACTERIA, URINE AUTO NEGATIVE (NEGATIVE); BILIRUBIN, URINE AUTO NEGATIVE (NEGATIVE); BLOOD, URINE BLOOD 1+ (NEGATIVE); COLOR, URINE YELLOW (YELLOW); GLUCOSE, URINE (UA) AUTO 3+ mg/dL (NEGATIVE); KETONE, URINE AUTO NEGATIVE (NEGATIVE); LEUKOCYTE ESTERASE, URINE AUTO NEGATIVE (NEGATIVE); MUCUS, URINE SMALL (NEGATIVE); NITRITE, URINE AUTO NEGATIVE (NEGATIVE); PROTEIN, URINE AUTO NEGATIVE (NEGATIVE); RBC, URINE AUTO 0 /HPF (0-3); SPECIFIC GRAVITY URINE AUTO 1.031 (1.002-1.035); SQUAMOUS EPITHELIAL CELL UR AU 2 /HPF (0-6); UROBILINOGEN, URINE AUTO 0.2 mg/dL (0.0-2.0); WBC, URINE AUTO 1 /HPF (0-3)
[2023-06-29 13:10] LABS: BASO % 0.3 % (0.0-1.0); EOS % 0.2 % (0.0-3.0); HEMATOCRIT 38.9 % (36.0-47.0); HEMOGLOBIN 11.7 g/dl (12.0-15.5); LYMPH # 1.5 10^3/uL (1.5-5.0); LYMPH % 13.9 % (24.0-44.0); MEAN CORPUSCULAR HGB CONC 30.1 g/dl (32.0-36.5); MEAN CORPUSCULAR VOLUME 89.8 fl (80.0-96.0); MONO # 0.2 10^3/uL (0.0-0.8); MONO % 2.2 % (2.0-8.0); NEUTROPHILS % 82.9 % (36.0-66.0); PLATELET COUNT, AUTOMATED 256 10^3/uL (150-450); RED BLOOD COUNT 4.33 10^6/uL (4.00-5.40); WHITE BLOOD COUNT 10.9 10^3/uL (4.0-10.0)
[2023-06-29 13:17] LABS: ACETONE/KETONE 0.11 MMOL/L (0.02-0.27)
[2023-06-29] MEDS ORDERED: HumuLIN R (REGULAR) INSULIN (NovoLIN R) **100U/ML** PER UNIT IV ONE (13:55)
[2023-06-29 15:03] VITALS: BP 121/71; TEMP 98.2; O2SAT 96
== END 2023-06-29 15:04 | disposition home or self-care (01) ==
LOC: M ED 11:24
DX: E11.65 Type 2 diabetes mellitus with hyperglycemia (principal); Z88.8 Allergy status to other drugs, medicaments and biological substances; Z79.899 Other long term (current) drug therapy
CPT/HCPCS: 80047; 81001; 82010; 82803; 83930; 85025; 96361; 96374; 99284; J1815

== ENCOUNTER 2023-07-04 01:54 | Emergency (ER) | payer MEDICARE, MEDICAID ==
[~2023-07-04] VITALS: Ht 177.8 cm; Wt 186.1 kg
[2023-07-04] MEDS ORDERED: GABA-284 PO (02:21)
[2023-07-04] MEDS ORDERED: LEVO50TA5 PO (02:24)
[2023-07-04] MEDS ORDERED: ABIL30TA4 PO (02:24)
[2023-07-04 02:48] LABS: BASO % 0.3 % (0.0-1.0); EOS # 0.2 10^3/uL (0.0-0.5); EOS % 1.7 % (0.0-3.0); HEMATOCRIT 38.4 % (36.0-47.0); HEMOGLOBIN 11.6 g/dl (12.0-15.5); LYMPH # 2.5 10^3/uL (1.5-5.0); LYMPH % 28.4 % (24.0-44.0); MEAN CORPUSCULAR HEMOGLOBIN 26.8 pg (27.0-33.0); MEAN CORPUSCULAR HGB CONC 30.2 g/dl (32.0-36.5); MEAN CORPUSCULAR VOLUME 88.7 fl (80.0-96.0); MONO # 0.4 10^3/uL (0.0-0.8); NEUTROPHILS # 5.6 10^3/uL (1.5-8.5); NEUTROPHILS % 64.3 % (36.0-66.0); PLATELET COUNT, AUTOMATED 238 10^3/uL (150-450); RED BLOOD COUNT 4.33 10^6/uL (4.00-5.40); WHITE BLOOD COUNT 8.7 10^3/uL (4.0-10.0)
[2023-07-04 03:23] LABS: BLOOD UREA NITROGEN 16 MG/DL (9-23); CALCIUM LEVEL 8.6 MG/DL (8.5-10.1); CARBON DIOXIDE LEVEL 31 MMOL/L (20-31); CHLORIDE LEVEL 105 MMOL/L (98-107); CREATININE FOR GFR 0.56 MG/DL (0.55-1.30); GLOMERULAR FILTRATION RATE > 60.0 (>58); GLUCOSE, FASTING 170 MG/DL (60-100); POTASSIUM SERUM 4.3 MMOL/L (3.5-5.1); SODIUM LEVEL 142 MMOL/L (136-145)
[2023-07-04 07:52] VITALS: BP 160/88; TEMP 97.3; O2SAT 95
== END 2023-07-04 07:59 | disposition home or self-care (01) ==
LOC: M ED 01:54
DX: N93.9 Abnormal uterine and vaginal bleeding, unspecified (principal); E11.9 Type 2 diabetes mellitus without complications; F25.9 Schizoaffective disorder, unspecified; E28.2 Polycystic ovarian syndrome; Z88.8 Allergy status to other drugs, medicaments and biological substances; Z91.040 Latex allergy status; Z79.899 Other long term (current) drug therapy; Z79.51 Long term (current) use of inhaled steroids

== ENCOUNTER 2023-09-28 14:00 | Emergency (ER) | payer MEDICARE, MEDICAID ==
[~2023-09-28 14:00] MED LIST changes: +ABIL30TA4 PO; +LEVO50TA5 PO
[2023-09-28 21:32] VITALS: BP 121/61; TEMP 98.4; O2SAT 95
== END 2023-09-28 21:25 | disposition home or self-care (01) ==
LOC: M ED 14:00
DX: F43.0 Acute stress reaction (principal); F20.9 Schizophrenia, unspecified; Z79.52 Long term (current) use of systemic steroids; Z79.891 Long term (current) use of opiate analgesic; Z79.899 Other long term (current) drug therapy

== ENCOUNTER 2023-10-08 06:00 | Emergency (ER) | payer MEDICARE, MEDICAID ==
[~2023-10-08] VITALS: Ht 170.2 cm; Wt 187.0 kg
[2023-10-08] MEDS ORDERED: POLY2.5S OP (07:50)
[2023-10-08] MEDS ORDERED: CEPH500C PO (07:50)
[2023-10-08] MEDS: LIDOCAINE 1% SDV 5ML VIAL DILUENT ONE (07:54)
[2023-10-08] MEDS: cefTRIAXone SOD 1GM VIAL IM ONE (07:54)
[2023-10-08 08:27] VITALS: BP 124/72; TEMP 96.9; O2SAT 95
== END 2023-10-08 08:27 | disposition home or self-care (01) ==
LOC: M ED 06:00
DX: L03.213 Periorbital cellulitis (principal); H10.33 Unspecified acute conjunctivitis, bilateral; E11.9 Type 2 diabetes mellitus without complications; I10 Essential (primary) hypertension; E78.5 Hyperlipidemia, unspecified; E28.2 Polycystic ovarian syndrome; Z91.040 Latex allergy status; Z88.8 Allergy status to other drugs, medicaments and biological substances; Z79.52 Long term (current) use of systemic steroids; Z79.891 Long term (current) use of opiate analgesic; Z79.890 Hormone replacement therapy; Z79.899 Other long term (current) drug therapy
CPT/HCPCS: 96372; 99284; J0696

== ENCOUNTER → 2023-10-15 | Outpatient (REF) | payer MEDICARE, MEDICAID ==
[~2023-10-15] MED LIST changes: +CEPH500C PO; +POLY2.5S OP
[2023-10-15 17:19] LABS: CREATININE, URINE 81.8 MG/DL; CREATININE,RANDOM URINE 81.8 MG/DL
[2023-10-15 17:20] LABS: MAU/CREAT RATIO 4.8 MCG/MG (0.0-30.0)
[2023-10-15 19:04] LABS: HEMOGLOBIN A1c 9.2 % (4.0-6.0)
[2023-10-15 19:14] LABS: BLOOD UREA NITROGEN 15 MG/DL (9-23); CALCIUM LEVEL 8.9 MG/DL (8.5-10.1); CARBON DIOXIDE LEVEL 33 MMOL/L (20-31); CHLORIDE LEVEL 102 MMOL/L (98-107); CHOLESTEROL LEVEL 141 MG/DL (<200); CHOLESTEROL RISK RATIO 3.01 (<5); CREATININE FOR GFR 0.63 MG/DL (0.55-1.30); GLOMERULAR FILTRATION RATE > 60.0 (>58); GLUCOSE, FASTING 140 MG/DL (60-100); HDL CHOLESTEROL 46.8 MG/DL (>40); LDL CHOLESTEROL 61.6 MG/DL (<100); NON-HDL-C 94.2 MG/DL; POTASSIUM SERUM 5.1 MMOL/L (3.5-5.1); SODIUM LEVEL 137 MMOL/L (136-145); TRIGLYCERIDES LEVEL 163 MG/DL (<150)
[2023-10-15 19:16] LABS: THYROID STIMULATING HORMONE 1.758 uIU/ML (0.55-4.78)
== END ==
LOC: M LAB REF 16:21
PROVIDERS: ATTEND Nurse Practitioner Family
DX: E11.9 Type 2 diabetes mellitus without complications (principal); E03.9 Hypothyroidism, unspecified; Z11.9 Encounter for screening for infectious and parasitic diseases, unspecified; Z11.3 Encounter for screening for infections with a predominantly sexual mode of transmission; Z72.89 Other problems related to lifestyle

== ENCOUNTER 2023-11-22 09:25 | Emergency (ER) | payer MEDICARE, MEDICAID ==
[~2023-11-22] VITALS: Ht 175.3 cm; Wt 185.0 kg
[2023-11-22] MEDS ORDERED: POLY2.5S OU (10:07)
[2023-11-22] MEDS ORDERED: OFLO5DRO OU (10:46)
[2023-11-22 11:26] VITALS: BP 141/68; TEMP 98.1; O2SAT 94
== END 2023-11-22 11:40 | disposition home or self-care (01) ==
LOC: M ED 09:25 → EDBD 09:25 → M ED 11:40
DX: S80.11XA Contusion of right lower leg, initial encounter (principal); H10.33 Unspecified acute conjunctivitis, bilateral; W19.XXXA Unspecified fall, initial encounter; E28.2 Polycystic ovarian syndrome; E03.9 Hypothyroidism, unspecified; M25.461 Effusion, right knee; E11.9 Type 2 diabetes mellitus without complications; F25.9 Schizoaffective disorder, unspecified; Z88.8 Allergy status to other drugs, medicaments and biological substances; Y92.9 Unspecified place or not applicable; Y93.9 Activity, unspecified; Y99.9 Unspecified external cause status; Z79.2 Long term (current) use of antibiotics; Z79.52 Long term (current) use of systemic steroids; Z79.811 Long term (current) use of aromatase inhibitors; Z79.891 Long term (current) use of opiate analgesic; Z79.899 Other long term (current) drug therapy

== ENCOUNTER → 2023-12-04 | Outpatient (CLI) | payer MEDICARE ==
[~2023-12-04] MED LIST changes: +OFLO5DRO OU; +POLY2.5S OU
== END ==
LOC: M SLEEP 20:00
PROVIDERS: ATTEND Nurse Practitioner Adult Health
DX: G47.33 Obstructive sleep apnea (adult) (pediatric) (principal)

== ENCOUNTER → 2024-01-21 | Outpatient (REF) | payer MEDICARE, MEDICAID ==
[2024-01-21 19:19] LABS: HEMOGLOBIN A1c 9.3 % (4.0-6.0)
== END ==
LOC: M LAB REF 16:44
PROVIDERS: ATTEND Nurse Practitioner Family
DX: E11.9 Type 2 diabetes mellitus without complications (principal)

== ENCOUNTER 2024-02-16 20:50 | Emergency (ER) | payer MEDICAID, MEDICARE, OTHER ==
[~2024-02-16] VITALS: Ht 175.3 cm; Wt 183.2 kg
[2024-02-17] MEDS ORDERED: ISOVUE-370 76% 100ML VIAL As Ordered ONE (01:02)
[2024-02-17 01:42] LABS: BASO % 0.5 % (0.0-1.0); EOS # 0.2 10^3/uL (0.0-0.5); EOS % 2.9 % (0.0-3.0); HEMOGLOBIN 12.2 g/dl (12.0-15.5); LYMPH # 2.5 10^3/uL (1.5-5.0); LYMPH % 33.1 % (24.0-44.0); MEAN CORPUSCULAR HEMOGLOBIN 27.2 pg (27.0-33.0); MEAN CORPUSCULAR HGB CONC 30.5 g/dl (32.0-36.5); MEAN CORPUSCULAR VOLUME 89.1 fl (80.0-96.0); MONO # 0.5 10^3/uL (0.0-0.8); MONO % 7.1 % (2.0-8.0); NEUTROPHILS # 4.3 10^3/uL (1.5-8.5); PLATELET COUNT, AUTOMATED 287 10^3/uL (150-450); RED BLOOD COUNT 4.49 10^6/uL (4.00-5.40); WHITE BLOOD COUNT 7.7 10^3/uL (4.0-10.0)
[2024-02-17 05:24] VITALS: BP 132/77; TEMP 97.5; O2SAT 98
== END 2024-02-17 05:41 | disposition home or self-care (01) ==
LOC: M ED 20:50
DX: R10.2 Pelvic and perineal pain (principal); E11.9 Type 2 diabetes mellitus without complications; I10 Essential (primary) hypertension; E78.5 Hyperlipidemia, unspecified; J45.909 Unspecified asthma, uncomplicated; E03.9 Hypothyroidism, unspecified; F19.10 Other psychoactive substance abuse, uncomplicated; F20.9 Schizophrenia, unspecified; Z88.8 Allergy status to other drugs, medicaments and biological substances; Z91.040 Latex allergy status; Z79.52 Long term (current) use of systemic steroids; Z79.899 Other long term (current) drug therapy; Z79.811 Long term (current) use of aromatase inhibitors
CPT/HCPCS: 36415; 72193; 80047; 81001; 85025; 86140; 87086; 99284; Q9967

== ENCOUNTER → 2024-03-05 | Outpatient (CLI) | payer OTHER, MEDICAID | LOC: M RAD 10:37 | PROVIDERS: ATTEND Nurse Practitioner Adult Health | DX: R06.02 Shortness of breath (principal) ==

== ENCOUNTER 2024-03-06 16:18 | Emergency (ER) | payer MEDICAID, OTHER ==
[~2024-03-06] VITALS: Ht 175.3 cm; Wt 185.9 kg
[2024-03-06 18:34] LABS: VENOUS BASE EXCESS 2.9 (-2.0-2.0); VENOUS HCO3 29.8 MMOL/L (23.0-27.0); VENOUS O2 SATURATION 76.4 % (60.0-80.0); VENOUS PARTIAL PRESSURE CO2 55.4 mmHg (38.0-50.0); VENOUS PARTIAL PRESSURE O2 43.1 mmHg (30.0-50.0); VENOUS PH 7.348 UNITS (7.330-7.430); VENOUS STANDARD HCO3 26.5 MMOL/L; VENOUS TOTAL CO2 31.5 MMOL/L (24.0-28.0)
[2024-03-06 18:39] LABS: BASO % 0.5 % (0.0-1.0); EOS # 0.3 10^3/uL (0.0-0.5); EOS % 3.2 % (0.0-3.0); HEMATOCRIT 41.5 % (36.0-47.0); HEMOGLOBIN 12.6 g/dl (12.0-15.5); LYMPH # 2.4 10^3/uL (1.5-5.0); LYMPH % 28.8 % (24.0-44.0); MEAN CORPUSCULAR HEMOGLOBIN 27.2 pg (27.0-33.0); MEAN CORPUSCULAR HGB CONC 30.4 g/dl (32.0-36.5); MEAN CORPUSCULAR VOLUME 89.6 fl (80.0-96.0); MONO # 0.4 10^3/uL (0.0-0.8); MONO % 5.2 % (2.0-8.0); NEUTROPHILS # 5.2 10^3/uL (1.5-8.5); NEUTROPHILS % 62.2 % (36.0-66.0); PLATELET COUNT, AUTOMATED 256 10^3/uL (150-450); RED BLOOD COUNT 4.63 10^6/uL (4.00-5.40); WHITE BLOOD COUNT 8.3 10^3/uL (4.0-10.0)
[2024-03-06 19:10] LABS: LIPASE 28 U/L (12-53)
[2024-03-06 19:12] LABS: ACETONE/KETONE 0.18 MMOL/L (0.02-0.27)
[2024-03-06 19:13] LABS: ALBUMIN 3.4 G/DL (3.2-5.2); ALKALINE PHOSPHATASE 122 U/L (46-116); ALT/SGPT 21 U/L (7.0-40); AST/SGOT 10 U/L (<34); BILIRUBIN,DIRECT < 0.1 MG/DL (<0.4); BILIRUBIN,TOTAL 0.3 MG/DL (0.3-1.2); BLOOD UREA NITROGEN 14 MG/DL (9-23); CALCIUM LEVEL 8.8 MG/DL (8.5-10.1); CARBON DIOXIDE LEVEL 33 MMOL/L (20-31); CHLORIDE LEVEL 105 MMOL/L (98-107); CREATININE FOR GFR 0.68 MG/DL (0.55-1.30); GLOMERULAR FILTRATION RATE > 60.0 (>58); GLUCOSE, FASTING 131 MG/DL (60-100); POTASSIUM SERUM 4.5 MMOL/L (3.5-5.1); SODIUM LEVEL 140 MMOL/L (136-145); TOTAL PROTEIN 6.3 G/DL (5.7-8.2)
[2024-03-06 19:16] LABS: HEMOGLOBIN A1c 9.1 % (4.0-6.0)
[2024-03-06 19:36] LABS: OSMOLALITY SERUM 305 MOSM/KG (275-295)
[2024-03-06 19:45] VITALS: BP 100/58; TEMP 97.6; O2SAT 93
== END 2024-03-06 20:57 | disposition left against medical advice (07) ==
LOC: M ED 16:18
DX: Z53.21 Procedure and treatment not carried out due to patient leaving prior to being seen by health care provider (principal)

== ENCOUNTER → 2024-03-20 | Outpatient (REF) | payer MEDICARE, MEDICAID ==
[~2024-03-20] MED LIST changes: -ARIP1TAB43 PO; +ARIP20TA51 PO
[2024-03-22 12:33] LABS: HPV APTIMA Not Detected (Not Detected)
== END ==
LOC: M SFHCWAGY 15:06
PROVIDERS: ATTEND Nurse Practitioner Family
DX: R87.5 Abnormal microbiological findings in specimens from female genital organs (principal); N73.9 Female pelvic inflammatory disease, unspecified; B97.7 Papillomavirus as the cause of diseases classified elsewhere; R87.610 Atypical squamous cells of undetermined significance on cytologic smear of cervix (ASC-US)
CPT/HCPCS: 87070; 87077; 87624; G0123

== ENCOUNTER → 2024-03-20 | Outpatient (CLI) | payer MEDICARE, MEDICAID ==
[~2024-03-20] MED LIST changes: +ACET325C5 PO
== END ==
LOC: M WHC 12:26
PROVIDERS: ATTEND Nurse Practitioner Family
DX: Z12.31 Encounter for screening mammogram for malignant neoplasm of breast (principal)

== ENCOUNTER 2024-04-21 22:00 | Emergency (ER) | payer MEDICARE, MEDICAID ==
[~2024-04-21] VITALS: Ht 175.3 cm; Wt 176.9 kg
[~2024-04-21 22:00] MED LIST changes: -ACET325C5 PO
[2024-04-21 22:08] VITALS: TEMP 97.8
[2024-04-21 23:14] LABS: RSV AMPLIFICATION NEGATIVE (NEGATIVE)
[2024-04-22 01:31] VITALS: BP 120/66
[2024-04-22 03:01] VITALS: O2SAT 94
[2024-04-22] MEDS ORDERED: ACET325C5 PO (05:39)
== END 2024-04-22 06:25 | disposition home or self-care (01) ==
LOC: M ED 22:00 → EDBD 22:00 → M ED 04-22 06:25
DX: B34.9 Viral infection, unspecified (principal); Z20.822 Contact with and (suspected) exposure to COVID-19; E11.9 Type 2 diabetes mellitus without complications; J45.909 Unspecified asthma, uncomplicated; F41.9 Anxiety disorder, unspecified; I10 Essential (primary) hypertension; Z91.040 Latex allergy status; Z88.8 Allergy status to other drugs, medicaments and biological substances; Z79.52 Long term (current) use of systemic steroids; Z79.899 Other long term (current) drug therapy

== ENCOUNTER → 2024-04-21 | Outpatient (REF) | payer MEDICARE, MEDICAID ==
[2024-04-21 14:15] LABS: HEMOGLOBIN A1c 8.4 % (4.0-6.0)
== END ==
LOC: M LAB REF 12:32
PROVIDERS: ATTEND Nurse Practitioner Family
DX: E11.9 Type 2 diabetes mellitus without complications (principal)

== ENCOUNTER → 2024-07-17 | Outpatient (REF) | payer MEDICARE, MEDICAID ==
[~2024-07-17] MED LIST changes: +ACET-683 PO; +ACET325C5 PO; +MELO15TA28 PO; +NYST1POW3 TOP; -NYST1POW9 TOP
== END ==
LOC: M LAB REF 16:32
PROVIDERS: ATTEND Nurse Practitioner Family
DX: E11.9 Type 2 diabetes mellitus without complications (principal); E03.9 Hypothyroidism, unspecified

== ENCOUNTER 2024-07-18 23:07 | Emergency (ER) | payer MEDICARE, MEDICAID ==
[~2024-07-18] VITALS: Ht 175.3 cm; Wt 178.0 kg
[~2024-07-18 23:07] MED LIST changes: -ACET-683 PO; -MELO15TA28 PO
[2024-07-18 23:08] VITALS: BP 142/91; TEMP 97.6; O2SAT 96
[2024-07-19] MEDS: IBUPROFEN 800 MG TAB PO ONE (00:01)
[2024-07-19] MEDS ORDERED: IBUP-1022 PO (00:44)
[2024-07-19] MEDS ORDERED: ACET-683 PO (00:44)
[2024-07-19] MEDS ORDERED: MELO15TA28 PO (01:34)
== END 2024-07-19 01:51 | disposition home or self-care (01) ==
LOC: M ED 23:07
DX: S83.91XA Sprain of unspecified site of right knee, initial encounter (principal); S83.92XA Sprain of unspecified site of left knee, initial encounter; W00.0XXA Fall on same level due to ice and snow, initial encounter; E11.9 Type 2 diabetes mellitus without complications; Y92.410 Unspecified street and highway as the place of occurrence of the external cause; Y93.89 Activity, other specified; Y99.9 Unspecified external cause status; Z88.8 Allergy status to other drugs, medicaments and biological substances; Z91.040 Latex allergy status; Z79.1 Long term (current) use of non-steroidal anti-inflammatories (NSAID); Z79.52 Long term (current) use of systemic steroids; Z79.899 Other long term (current) drug therapy

== ENCOUNTER 2024-07-26 17:35 | Emergency (ER) | payer MEDICARE, MEDICAID ==
[~2024-07-26] VITALS: Ht 172.7 cm; Wt 178.0 kg
[~2024-07-26 17:35] MED LIST changes: +ACET-683 PO; +MELO15TA28 PO
[2024-07-26 17:45] VITALS: TEMP 98.1
[2024-07-26] MEDS: MECLIZINE 25 MG TABLET PO ONE ×2 (19:45→21:11)
[2024-07-26 20:00] VITALS: BP 102/58; O2SAT 93
[2024-07-26 20:05] LABS: BASO # 0.1 10^3/uL (0.0-0.2); BASO % 0.6 % (0.0-1.0); EOS # 0.2 10^3/uL (0.0-0.5); EOS % 1.9 % (0.0-3.0); HEMATOCRIT 37.9 % (36.0-47.0); HEMOGLOBIN 11.5 g/dl (12.0-15.5); LYMPH # 1.7 10^3/uL (1.5-5.0); LYMPH % 20.4 % (24.0-44.0); MEAN CORPUSCULAR HEMOGLOBIN 27.6 pg (27.0-33.0); MEAN CORPUSCULAR HGB CONC 30.3 g/dl (32.0-36.5); MEAN CORPUSCULAR VOLUME 90.9 fl (80.0-96.0); MONO # 0.5 10^3/uL (0.0-0.8); MONO % 5.6 % (2.0-8.0); NEUTROPHILS # 5.9 10^3/uL (1.5-8.5); NEUTROPHILS % 71.3 % (36.0-66.0); PLATELET COUNT, AUTOMATED 233 10^3/uL (150-450); RED BLOOD COUNT 4.17 10^6/uL (4.00-5.40); WHITE BLOOD COUNT 8.2 10^3/uL (4.0-10.0)
[2024-07-26 20:40] LABS: ALBUMIN 3.1 G/DL (3.2-5.2); ALKALINE PHOSPHATASE 105 U/L (35-104); ALT/SGPT 16 U/L (7.0-40); AST/SGOT 23 U/L (<34); BILIRUBIN,TOTAL 0.2 MG/DL (0.3-1.2); BLOOD UREA NITROGEN 12 MG/DL (9-23); CALCIUM LEVEL 8.9 MG/DL (8.5-10.1); CARBON DIOXIDE LEVEL 28 MMOL/L (20-31); CHLORIDE LEVEL 107 MMOL/L (98-107); CREATININE FOR GFR 0.61 MG/DL (0.55-1.30); GLOMERULAR FILTRATION RATE > 60.0 (>58); GLUCOSE, FASTING 223 MG/DL (60-100); POTASSIUM SERUM 4.7 MMOL/L (3.5-5.1); SODIUM LEVEL 144 MMOL/L (136-145); TOTAL PROTEIN 6.1 G/DL (5.7-8.2)
[2024-07-26] MEDS ORDERED: CEFD300C PO (20:52)
[2024-07-26] MEDS ORDERED: MECL-86 PO (20:52)
[2024-07-26] MEDS: CEFDINIR 300 MG CAP (OMNICEF) PO ONE (21:11)
== END 2024-07-26 21:12 | disposition home or self-care (01) ==
LOC: M ED 17:35
DX: N39.0 Urinary tract infection, site not specified (principal); H81.4 Vertigo of central origin; Z88.8 Allergy status to other drugs, medicaments and biological substances; Z91.040 Latex allergy status; Z79.52 Long term (current) use of systemic steroids; Z79.2 Long term (current) use of antibiotics; Z79.899 Other long term (current) drug therapy

== ENCOUNTER 2024-08-12 18:52 | Emergency (ER) | payer MEDICARE, MEDICAID ==
[~2024-08-12] VITALS: Ht 175.3 cm; Wt 176.8 kg
[~2024-08-12 18:52] MED LIST changes: +CEFD300C PO; +MECL-86 PO
[2024-08-12 19:01] VITALS: BP 125/57; TEMP 98.4; O2SAT 92
[2024-08-12] MEDS: MECLIZINE 25 MG TABLET PO ONE (23:10)
[2024-08-12] MEDS: IBUPROFEN 600MG TAB PO ONE (23:10)
== END 2024-08-12 23:14 | disposition home or self-care (01) ==
LOC: M ED 18:52
DX: M25.551 Pain in right hip (principal); M25.561 Pain in right knee; I10 Essential (primary) hypertension; E11.9 Type 2 diabetes mellitus without complications; Z88.8 Allergy status to other drugs, medicaments and biological substances; Z91.040 Latex allergy status; Z79.1 Long term (current) use of non-steroidal anti-inflammatories (NSAID); Z79.51 Long term (current) use of inhaled steroids; Z79.2 Long term (current) use of antibiotics; Z79.4 Long term (current) use of insulin; Z79.899 Other long term (current) drug therapy

== ENCOUNTER → 2024-08-29 | Outpatient (CLI) | payer MEDICARE, MEDICAID | LOC: M RAD 08:59 | PROVIDERS: ATTEND Nurse Practitioner Family | DX: M25.562 Pain in left knee (principal); M25.561 Pain in right knee; R55 Syncope and collapse; M17.0 Bilateral primary osteoarthritis of knee ==

== ENCOUNTER 2024-10-04 00:18 | Emergency (ER) | payer MEDICARE, MEDICAID ==
[2024-10-04 00:51] VITALS: BP 134/82; TEMP 97.3; O2SAT 93
[2024-10-04] MEDS: LORazepam 2 MG TAB PO STA (01:07)
[2024-10-04 01:27] LABS: HEMATOCRIT 40.4 % (36.0-47.0); HEMOGLOBIN 12.2 g/dl (12.0-15.5); MEAN CORPUSCULAR HEMOGLOBIN 27.4 pg (27.0-33.0); MEAN CORPUSCULAR HGB CONC 30.2 g/dl (32.0-36.5); MEAN CORPUSCULAR VOLUME 90.8 fl (80.0-96.0); PLATELET COUNT, AUTOMATED 272 10^3/uL (150-450); RED BLOOD COUNT 4.45 10^6/uL (4.00-5.40)
[2024-10-04 02:27] LABS: AMPHETAMINES LEVEL URINE NEGATIVE (NEGATIVE); BARBITURATES URINE NEGATIVE (NEGATIVE); BENZODIAZEPINES URINE NEGATIVE (NEGATIVE); CANNABINOIDS URINE NEGATIVE (NEGATIVE); COCAINE METABOLITE URINE NEGATIVE (NEGATIVE); METHADONE URINE NEGATIVE (NEGATIVE); OPIATES URINE NEGATIVE (NEGATIVE); PHENCYCLIDINE URINE NEGATIVE (NEGATIVE)
[2024-10-04 02:29] LABS: ETHYL ALCOHOL (ETHANOL) < 0.003 % (0.000-0.010)
[2024-10-04 02:30] LABS: SALICYLATE LEVEL < 3.0 MG/DL (<30)
[2024-10-04 02:31] LABS: ALBUMIN 3.6 G/DL (3.2-5.2); ALKALINE PHOSPHATASE 97 U/L (35-104); ALT/SGPT 18 U/L (7.0-40); AST/SGOT 14 U/L (<34); BILIRUBIN,DIRECT 0.1 MG/DL (<0.4); BILIRUBIN,TOTAL 0.3 MG/DL (0.3-1.2); BLOOD UREA NITROGEN 18 MG/DL (9-23); CALCIUM LEVEL 9.1 MG/DL (8.5-10.1); CARBON DIOXIDE LEVEL 29 MMOL/L (20-31); CHLORIDE LEVEL 103 MMOL/L (98-107); CREATININE FOR GFR 0.69 MG/DL (0.55-1.30); GLOMERULAR FILTRATION RATE > 60.0 (>58); GLUCOSE, FASTING 144 MG/DL (60-100); POTASSIUM SERUM 4.5 MMOL/L (3.5-5.1); SODIUM LEVEL 140 MMOL/L (136-145); TOTAL PROTEIN 6.9 G/DL (5.7-8.2)
[2024-10-04 02:33] LABS: THYROID STIMULATING HORMONE 6.412 uIU/ML (0.55-4.78)
[2024-10-04 02:38] LABS: HCG, SERUM QUALITATIVE NEGATIVE (NEGATIVE)
== END 2024-10-04 04:46 | disposition home or self-care (01) ==
LOC: M ED 00:18
DX: F43.0 Acute stress reaction (principal); R45.851 Suicidal ideations; E11.9 Type 2 diabetes mellitus without complications; K21.9 Gastro-esophageal reflux disease without esophagitis; F32.A Depression, unspecified; F20.9 Schizophrenia, unspecified; F41.9 Anxiety disorder, unspecified; E28.2 Polycystic ovarian syndrome; Z88.8 Allergy status to other drugs, medicaments and biological substances; Z91.040 Latex allergy status; Z79.52 Long term (current) use of systemic steroids; Z79.899 Other long term (current) drug therapy

== ENCOUNTER 2024-10-11 07:59 | Inpatient (IN) | payer MEDICARE, MEDICAID ==
[~2024-10-11] VITALS: Ht 175.3 cm; Wt 190.7 kg
[2024-10-11 08:51] LABS: BASO % 0.5 % (0.0-1.0); EOS # 0.2 10^3/uL (0.0-0.5); EOS % 3.2 % (0.0-3.0); HEMATOCRIT 40.9 % (36.0-47.0); HEMOGLOBIN 12.4 g/dl (12.0-15.5); LYMPH # 1.8 10^3/uL (1.5-5.0); LYMPH % 31.2 % (24.0-44.0); MEAN CORPUSCULAR HEMOGLOBIN 27.6 pg (27.0-33.0); MEAN CORPUSCULAR HGB CONC 30.3 g/dl (32.0-36.5); MEAN CORPUSCULAR VOLUME 91.1 fl (80.0-96.0); MONO # 0.3 10^3/uL (0.0-0.8); MONO % 5.8 % (2.0-8.0); NEUTROPHILS # 3.5 10^3/uL (1.5-8.5); NEUTROPHILS % 59.1 % (36.0-66.0); PLATELET COUNT, AUTOMATED 250 10^3/uL (150-450); RED BLOOD COUNT 4.49 10^6/uL (4.00-5.40); WHITE BLOOD COUNT 5.9 10^3/uL (4.0-10.0)
[2024-10-11 09:18] LABS: LIPASE 55 U/L (12-53)
[2024-10-11] MEDS: ONDANSETRON 4MG 2ML VIAL IV ONE (09:18)
[2024-10-11 09:20] LABS: ALBUMIN 3.1 G/DL (3.2-5.2); ALKALINE PHOSPHATASE 88 U/L (35-104); ALT/SGPT 14 U/L (7.0-40); AST/SGOT 17 U/L (<34); BILIRUBIN,DIRECT < 0.1 MG/DL (<0.4); BILIRUBIN,TOTAL 0.2 MG/DL (0.3-1.2); BLOOD UREA NITROGEN 16 MG/DL (9-23); CALCIUM LEVEL 8.7 MG/DL (8.5-10.1); CARBON DIOXIDE LEVEL 26 MMOL/L (20-31); CHLORIDE LEVEL 106 MMOL/L (98-107); CREATININE FOR GFR 0.65 MG/DL (0.55-1.30); GLOMERULAR FILTRATION RATE > 60.0 (>58); GLUCOSE, FASTING 150 MG/DL (60-100); SODIUM LEVEL 143 MMOL/L (136-145); TOTAL PROTEIN 6.2 G/DL (5.7-8.2)
[2024-10-11 09:38] LABS: HCG, SERUM QUALITATIVE NEGATIVE (NEGATIVE)
[2024-10-11] MEDS: KETOROLAC 30 MG/ML 1ML VIAL IV ONE (11:58)
[2024-10-11 12:26] LABS: KETONE, URINE AUTO RFX TRACE mg/dL (NEGATIVE); MUCUS, URINE RFX SMALL (NEGATIVE); NITRITE, URINE AUTO RFX NEGATIVE (NEGATIVE); RBC, URINE AUTO RFX 6 /HPF (0-3); SQUAM EPITHELIAL CELL UR AURFX 16 /HPF (0-6)
[2024-10-11 12:32] LABS: ETHYL ALCOHOL (ETHANOL) < 0.003 % (0.000-0.010)
[2024-10-11 12:34] LABS: SALICYLATE LEVEL < 3.0 MG/DL (<30)
[2024-10-11 12:36] LABS: FREE T4 1.38 NG/DL (0.89-1.76); THYROID STIMULATING HORMONE 2.508 uIU/ML (0.55-4.78)
[2024-10-11 12:36] LABS: LEUKOCYTE ESTERASE UR AUTO RFX 2+ (NEGATIVE); WBC, URINE AUTO RFX 16 /HPF (0-3)
[2024-10-11 12:45] LABS: AMPHETAMINES LEVEL URINE NEGATIVE (NEGATIVE); BARBITURATES URINE NEGATIVE (NEGATIVE); BENZODIAZEPINES URINE NEGATIVE (NEGATIVE); CANNABINOIDS URINE NEGATIVE (NEGATIVE); COCAINE METABOLITE URINE NEGATIVE (NEGATIVE); METHADONE URINE NEGATIVE (NEGATIVE); OPIATES URINE NEGATIVE (NEGATIVE); PHENCYCLIDINE URINE NEGATIVE (NEGATIVE)
[2024-10-11] MEDS ORDERED: LEXA1TAB2 PO (15:30)
[2024-10-11] MEDS ORDERED: ARIP10TA63 PO (15:30)
[2024-10-11 15:38] VITALS: BP 144/91; TEMP 97; O2SAT 96
[2024-10-11] MEDS ORDERED: JARD1TAB3 PO (15:41)
[2024-10-11] MEDS ORDERED: ZALE10CA PO (15:41)
[2024-10-11] MEDS ORDERED: SEMA0.257 SC (15:41)
[2024-10-11] MEDS ORDERED: PIOG1TAB36 PO (15:41)
[2024-10-11] MEDS ORDERED: BUSP15TA47 PO (15:41)
[2024-10-11] MEDS ORDERED: IBUP-1764 PO (15:41)
[2024-10-11] MEDS ORDERED: FLUTISP NARES (15:41)
[2024-10-11] MEDS ORDERED: ATIV1TAB10 PO (15:41)
[2024-10-11] MEDS ORDERED: LEVO125T4 PO (15:41)
[2024-10-11] MEDS ORDERED: APAP325T4 PO (15:42)
[2024-10-11] MEDS ORDERED: HOME MED LIST COMPLETE! XX SCH (16:10)
[2024-10-11] MEDS ORDERED: OLANZapine ORAL DISINTEGRATING TAB 5MG PO PRN (16:15)
[2024-10-11] MEDS ORDERED: IBUPROFEN 400MG TAB PO PRN (16:15)
[2024-10-11] MEDS ORDERED: FLUTICASONE PROP 0.05% NASAL SPRAY 16 GM (FLONASE) NARES PRN (16:15)
[2024-10-11] MEDS ORDERED: MOM 30ML SUSPENSION UDC PO PRN (16:15)
[2024-10-11] MEDS ORDERED: ALBUTEROL 90 MCG/ACT 8GM HFA INHALER INH PRN (16:15)
[2024-10-11] MEDS ORDERED: DEXTROSE 50% 50ML SYRINGE IV PRN (17:10)
[2024-10-11] MEDS ORDERED: GLUCAGON INJ 1MG VIAL SC PRN (17:10)
[2024-10-11] MEDS ORDERED: GLUCOSE 4 GM CHEW PO PRN (17:10)
[2024-10-11] MEDS: GABAPENTIN 400MG CAP PO SCH (17:20)
[2024-10-11] MEDS: ARIPiprazole 10 MG TAB PO SCH (17:20)
[2024-10-11] MEDS: LEVOTHYROXINE 125MCG TABLET (0.125MG) PO SCH (17:20)
[2024-10-11] MEDS: PRAVASTATIN 20 MG TAB PO SCH (17:20)
[2024-10-11] MEDS: VERAPAMIL 120MG SR TAB PO SCH (17:21)
[2024-10-11] MEDS: INSULIN LISPRO (NovoLOG) PER UNIT SC SCH ×2 (17:28→21:00)
[2024-10-11] MEDS: ESCITALOPRAM OXALATE 10 MG TAB (LEXAPRO) PO SCH (21:10)
[2024-10-11] MEDS: busPIRone 5 MG TAB PO SCH (21:10)
[2024-10-11] MEDS: BENZTROPINE 1 MG TAB PO SCH (21:10)
[2024-10-11] MEDS: CEFDINIR 300 MG CAP (OMNICEF) PO SCH (21:10)
[2024-10-11] MEDS: traZODone 50 MG TAB PO PRN (21:10)
[2024-10-11] MEDS: IBUPROFEN 200MG TAB PO PRN (21:14)
[2024-10-12 06:28] VITALS: BP 110/59; TEMP 97.1; O2SAT 93
[2024-10-12 15:34] VITALS: BP 106/55; TEMP 97.5; O2SAT 98
[2024-10-12 19:22] LABS: HEMOGLOBIN A1c 7.1 % (4.0-6.0)
[2024-10-12] MEDS: LORazepam 0.5 MG TAB PO PRN (21:34)
[2024-10-12] MEDS: ACETAMINOPHEN 325 MG TAB PO PRN (21:34)
[2024-10-13 06:26] VITALS: BP 126/82; TEMP 97.5; O2SAT 96
[2024-10-13 08:36] VITALS: BP 128/72
[2024-10-13 16:16] VITALS: BP 105/73; TEMP 97.9; O2SAT 98
[2024-10-14 06:50] VITALS: BP 100/57; TEMP 96.8; O2SAT 95
[2024-10-14] MEDS ORDERED: CEFD300CAP PO (07:30)
[2024-10-14 09:48] VITALS: BP 128/84
[2024-10-14 09:52] VITALS: BP 128/84
[2024-10-14] MEDS: ARIPiprazole 10 MG TAB PO SCH (09:53)
== END 2024-10-14 12:57 | disposition home or self-care (01) | DRG 885 ==
LOC: EDBD 07:59 → M ED 07:59 → M ED INP 13:56 → M PSY 15:36
PROVIDERS: ADMIT Psychiatry & Neurology Psychiatry; ATTEND Psychiatry & Neurology Psychiatry
DX: F20.9 Schizophrenia, unspecified (principal); F72 Severe intellectual disabilities; Z68.44 Body mass index [BMI] 60.0-69.9, adult; Z91.040 Latex allergy status; Z88.8 Allergy status to other drugs, medicaments and biological substances; Z79.899 Other long term (current) drug therapy; F17.200 Nicotine dependence, unspecified, uncomplicated; E28.2 Polycystic ovarian syndrome; E66.9 Obesity, unspecified; M19.90 Unspecified osteoarthritis, unspecified site; E03.9 Hypothyroidism, unspecified; J45.909 Unspecified asthma, uncomplicated; E11.9 Type 2 diabetes mellitus without complications; Z79.890 Hormone replacement therapy

== ENCOUNTER → 2024-11-05 | Outpatient (CLI) | payer MEDICARE, MEDICAID ==
[~2024-11-05] MED LIST changes: +APAP325T4 PO; +ARIP10TA63 PO; +BUSP15TA47 PO; +CEFD300CAP PO; +FLUTISP NARES; +IBUP-1764 PO; +JARD1TAB3 PO; +PIOG1TAB36 PO; +SEMA0.257 SC
== END ==
LOC: M EKG 12:15
PROVIDERS: ATTEND Nurse Practitioner Family
DX: R55 Syncope and collapse (principal)

== ENCOUNTER 2024-12-07 20:15 | Inpatient (IN) | payer MEDICARE, MEDICAID ==
[~2024-12-07] VITALS: Ht 162.6 cm; Wt 170.3 kg
[2024-12-07 22:13] LABS: HEMATOCRIT 41.6 % (36.0-47.0); HEMOGLOBIN 12.8 g/dl (12.0-15.5); MEAN CORPUSCULAR HEMOGLOBIN 27.7 pg (27.0-33.0); MEAN CORPUSCULAR HGB CONC 30.8 g/dl (32.0-36.5); PLATELET COUNT, AUTOMATED 247 10^3/uL (150-450); RED BLOOD COUNT 4.62 10^6/uL (4.00-5.40); WHITE BLOOD COUNT 7.7 10^3/uL (4.0-10.0)
[2024-12-07 22:32] LABS: AMPHETAMINES LEVEL URINE NEGATIVE (NEGATIVE); BENZODIAZEPINES URINE NEGATIVE (NEGATIVE)
[2024-12-07 22:33] LABS: BARBITURATES URINE NEGATIVE (NEGATIVE); CANNABINOIDS URINE NEGATIVE (NEGATIVE); COCAINE METABOLITE URINE NEGATIVE (NEGATIVE); METHADONE URINE NEGATIVE (NEGATIVE); OPIATES URINE NEGATIVE (NEGATIVE); PHENCYCLIDINE URINE NEGATIVE (NEGATIVE)
[2024-12-07 22:47] LABS: ETHYL ALCOHOL (ETHANOL) < 0.003 % (0.000-0.010)
[2024-12-07 22:48] LABS: SALICYLATE LEVEL < 3.0 MG/DL (<30)
[2024-12-07 23:16] LABS: ALBUMIN 3.6 G/DL (3.2-5.2); ALKALINE PHOSPHATASE 97 U/L (35-104); ALT/SGPT 19 U/L (7.0-40); AST/SGOT 12 U/L (<34); BILIRUBIN,DIRECT 0.1 MG/DL (<0.4); BILIRUBIN,TOTAL 0.3 MG/DL (0.3-1.2); BLOOD UREA NITROGEN 16 MG/DL (9-23); CALCIUM LEVEL 9.3 MG/DL (8.5-10.1); CARBON DIOXIDE LEVEL 30 MMOL/L (20-31); CHLORIDE LEVEL 105 MMOL/L (98-107); CREATININE FOR GFR 0.82 MG/DL (0.55-1.30); GLOMERULAR FILTRATION RATE 87.6 (>58); GLUCOSE, FASTING 109 MG/DL (60-100); SODIUM LEVEL 144 MMOL/L (136-145); THYROID STIMULATING HORMONE 2.338 uIU/ML (0.55-4.78); TOTAL PROTEIN 6.7 G/DL (5.7-8.2)
[2024-12-07 23:56] LABS: KETONE, URINE AUTO RFX 1+ mg/dL (NEGATIVE); LEUKOCYTE ESTERASE UR AUTO RFX 1+ (NEGATIVE); MUCUS, URINE RFX LARGE (NEGATIVE); NITRITE, URINE AUTO RFX NEGATIVE (NEGATIVE); RBC, URINE AUTO RFX 0 /HPF (0-3); SQUAM EPITHELIAL CELL UR AURFX 8 /HPF (0-6); WBC, URINE AUTO RFX 2 /HPF (0-3)
[2024-12-08] MEDS: NICOTINE 14 MG/24 HR TRANSDERMAL TD SCH (09:00)
[2024-12-08] MEDS ORDERED: OLANZapine INTRAMUSCULAR 10MG VIAL IM PRN (13:45)
[2024-12-08] MEDS ORDERED: traZODone 50 MG TAB PO PRN (13:45)
[2024-12-08] MEDS ORDERED: MOM 30ML SUSPENSION UDC PO PRN (13:45)
[2024-12-08] MEDS ORDERED: MAALOX 30 ML SUSP *UDC PO PRN (13:45)
[2024-12-08] MEDS ORDERED: JARD1TAB PO (13:50)
[2024-12-08] MEDS ORDERED: SEMA1SYR SQ (13:54)
[2024-12-08] MEDS ORDERED: CETI-24 PO (13:56)
[2024-12-08] MEDS ORDERED: THERTAB52 PO (13:57)
[2024-12-08] MEDS ORDERED: SEMA1PEN2 SQ (13:58)
[2024-12-08] MEDS ORDERED: HOME MED LIST COMPLETE! XX SCH (14:00)
[2024-12-08 15:13] VITALS: BP 129/86; TEMP 98.1; O2SAT 97
[2024-12-08] MEDS ORDERED: ZALEPLON 10 MG PO PRN (19:10)
[2024-12-08] MEDS ORDERED: IBUPROFEN 600MG TAB PO PRN (19:10)
[2024-12-08] MEDS ORDERED: FLUTICASONE PROP 0.05% NASAL SPRAY 16 GM (FLONASE) NARES PRN (19:10)
[2024-12-08] MEDS: GABAPENTIN 400MG CAP PO SCH (20:43)
[2024-12-08] MEDS: BENZTROPINE 1 MG TAB PO SCH (20:44)
[2024-12-08] MEDS: busPIRone 5 MG TAB PO SCH (20:44)
[2024-12-09] MEDS: LEVOTHYROXINE 125MCG TABLET (0.125MG) PO SCH (05:58)
[2024-12-09 06:35] VITALS: BP 158/88; TEMP 97; O2SAT 99
[2024-12-09 08:16] VITALS: BP 150/90
[2024-12-09] MEDS: VERAPAMIL 120MG SR TAB PO SCH (08:18)
[2024-12-09] MEDS: ARIPiprazole 10 MG TAB PO SCH (08:18)
[2024-12-09] MEDS: PRAVASTATIN 20 MG TAB PO SCH (08:19)
[2024-12-09] MEDS: MULTIVITAMINS/MINERALS THERAP 1 TAB PO SCH (08:19)
[2024-12-09] MEDS: ESCITALOPRAM OXALATE 10 MG TAB (LEXAPRO) PO SCH (08:19)
[2024-12-09] MEDS: CETIRIZINE (ZyrTEC) 10 MG TAB PO SCH (08:19)
[2024-12-09] MEDS ORDERED: ARIPiprazole 10 MG TAB PO SCH (09:00)
[2024-12-09] MEDS: OLANZapine 5 MG TAB PO PRN (11:51)
[2024-12-09 16:06] VITALS: BP 134/81; TEMP 97.6; O2SAT 97
[2024-12-09] MEDS: NYSTATIN 100,000 UNITS/GM TOPICAL PWD 15GM TOP SCH (20:27)
[2024-12-09] MEDS: ACETAMINOPHEN 325 MG TAB PO PRN (20:38)
[2024-12-10 06:43] VITALS: BP 133/89; TEMP 96.9; O2SAT 100
[2024-12-10 07:33] LABS: CHOLESTEROL RISK RATIO 2.58 (<5); HDL CHOLESTEROL 53.3 MG/DL (>40); LDL CHOLESTEROL 64.1 MG/DL (<100); NON-HDL-C 84.7 MG/DL
[2024-12-10] MEDS: ALBUTEROL 90 MCG/ACT 8GM HFA INHALER INH PRN (08:56)
[2024-12-10] MEDS: JARDIANCE 10MG TABLET (PATIENT'S OWN MED) PO SCH (08:56)
[2024-12-10] MEDS: PIOGLITAZONE 15 MG PO SCH (09:01)
[2024-12-10] MEDS: ARIPiprazole MONOHYDRATE 400 MG INJ (ABILIFY)(FREE PSY INPT ONLY) IM SCH (11:08)
[2024-12-10 15:45] VITALS: BP 156/90; TEMP 96.7; O2SAT 100
[2024-12-10] MEDS: LORazepam 1 MG TAB PO PRN (18:45)
[2024-12-11 06:39] VITALS: BP 131/85; TEMP 97; O2SAT 99
[2024-12-11] MEDS: diphenhydrAMINE 25MG CAP PO PRN (09:48)
[2024-12-11 15:16] VITALS: BP 110/70; TEMP 97; O2SAT 95
[2024-12-12 06:37] VITALS: BP 136/86; TEMP 97.4; O2SAT 99
[2024-12-12] MEDS ORDERED: NYST10006 TOP (07:48)
[2024-12-12] MEDS ORDERED: ABIL10TA9 PO (07:48)
[2024-12-12] MEDS ORDERED: ABIL400I IM (07:48)
[2024-12-12 08:43] VITALS: BP 158/69
== END 2024-12-12 13:30 | disposition home or self-care (01) | DRG 885 ==
LOC: M ED 20:15 → M ED INP 12-08 13:43 → M PSY 12-08 15:16
PROVIDERS: ADMIT Internal Medicine; ATTEND Internal Medicine
DX: F20.9 Schizophrenia, unspecified (principal); Z68.44 Body mass index [BMI] 60.0-69.9, adult; F79 Unspecified intellectual disabilities; Z91.040 Latex allergy status; Z88.8 Allergy status to other drugs, medicaments and biological substances; Z79.899 Other long term (current) drug therapy; E66.01 Morbid (severe) obesity due to excess calories; E03.9 Hypothyroidism, unspecified; Z79.890 Hormone replacement therapy; M19.90 Unspecified osteoarthritis, unspecified site; E28.2 Polycystic ovarian syndrome; J45.909 Unspecified asthma, uncomplicated; E11.9 Type 2 diabetes mellitus without complications; L30.4 Erythema intertrigo

== ENCOUNTER → 2025-02-20 | Outpatient (REF) | payer MEDICARE, MEDICAID ==
[~2025-02-20] MED LIST changes: +ABIL10TA9 PO; +ARIP400S IM; +CETI-24 PO; +JARD1TAB PO; +NYST10006 TOP; -PRAV20TA2 PO; +PRAV20TA78 PO; +SEMA1PEN2 SQ; +SEMA1SYR SQ; +THERTAB52 PO
[2025-02-24 14:02] LABS: HPV APTIMA Not Detected (Not Detected)
== END ==
LOC: M LAB REF 17:35
PROVIDERS: ATTEND Nurse Practitioner Family
DX: Z12.4 Encounter for screening for malignant neoplasm of cervix (principal)
CPT/HCPCS: 87624; G0123

== ENCOUNTER → 2025-03-30 | Outpatient (CLI) | payer MEDICARE, MEDICAID ==
[~2025-03-30] MED LIST changes: -IBUP-1022 PO; +IBUP600T42 PO
== END ==
LOC: M WHC 10:49
PROVIDERS: ATTEND Nurse Practitioner Family
DX: Z12.31 Encounter for screening mammogram for malignant neoplasm of breast (principal); R92.313 Mammographic fatty tissue density, bilateral breasts

== ENCOUNTER → 2025-04-17 | Outpatient (REF) | payer MEDICARE, MEDICAID ==
[2025-04-17 13:06] LABS: CALCIUM LEVEL 8.8 MG/DL (8.5-10.1); CARBON DIOXIDE LEVEL 33 MMOL/L (20-31); CHLORIDE LEVEL 106 MMOL/L (98-107); CREATININE FOR GFR 0.64 MG/DL (0.55-1.30); GLOMERULAR FILTRATION RATE > 90.0 (>58); POTASSIUM SERUM 5.0 MMOL/L (3.5-5.1); SODIUM LEVEL 147 MMOL/L (136-145)
[2025-04-17 13:22] LABS: ESTIMATED AVERAGE GLUCOSE 163.0 MG/DL (60-110)
== END ==
LOC: M LAB REF 12:24
PROVIDERS: ATTEND Nurse Practitioner Family
DX: E11.9 Type 2 diabetes mellitus without complications (principal)

== ENCOUNTER 2025-05-08 23:06 | Emergency (ER) | payer MEDICARE, MEDICAID ==
[~2025-05-08] VITALS: Ht 175.3 cm; Wt 167.3 kg
[2025-05-08 23:49] LABS: KETONE, URINE AUTO RFX NEGATIVE (NEGATIVE); MUCUS, URINE RFX SMALL (NEGATIVE); NITRITE, URINE AUTO RFX NEGATIVE (NEGATIVE); RBC, URINE AUTO RFX 3 /HPF (0-3); SQUAM EPITHELIAL CELL UR AURFX 8 /HPF (0-6); WBC, URINE AUTO RFX 5 /HPF (0-3)
[2025-05-08 23:51] LABS: LEUKOCYTE ESTERASE UR AUTO RFX TRACE (NEGATIVE)
[2025-05-09] MEDS: ACETAMINOPHEN 325 MG TAB PO ONE (04:30)
[2025-05-09 07:54] VITALS: BP 122/66; TEMP 98.9; O2SAT 98
== END 2025-05-09 07:55 | disposition home or self-care (01) ==
LOC: M ED 23:06
DX: S90.112A Contusion of left great toe without damage to nail, initial encounter (principal); X58.XXXA Exposure to other specified factors, initial encounter; M19.072 Primary osteoarthritis, left ankle and foot; M25.775 Osteophyte, left foot; R22.42 Localized swelling, mass and lump, left lower limb; E11.9 Type 2 diabetes mellitus without complications; E28.2 Polycystic ovarian syndrome; E03.9 Hypothyroidism, unspecified; E66.9 Obesity, unspecified; I10 Essential (primary) hypertension; K21.9 Gastro-esophageal reflux disease without esophagitis; F25.9 Schizoaffective disorder, unspecified; Z88.8 Allergy status to other drugs, medicaments and biological substances; Z91.040 Latex allergy status; Z79.52 Long term (current) use of systemic steroids; Z79.1 Long term (current) use of non-steroidal anti-inflammatories (NSAID); Z79.899 Other long term (current) drug therapy; Y92.9 Unspecified place or not applicable; Y93.89 Activity, other specified; Y99.9 Unspecified external cause status

== ENCOUNTER → 2025-06-12 | Outpatient (REF) | payer MEDICARE, MEDICAID ==
[2025-06-12 12:27] LABS: APPEARANCE, URINE HAZY (CLEAR); BACTERIA, URINE AUTO NEGATIVE (NEGATIVE); BILIRUBIN, URINE AUTO NEGATIVE (NEGATIVE); BLOOD, URINE BLOOD NEGATIVE (NEGATIVE); GLUCOSE, URINE (UA) AUTO 3+ mg/dL (NEGATIVE); KETONE, URINE AUTO NEGATIVE (NEGATIVE); LEUKOCYTE ESTERASE, URINE AUTO NEGATIVE (NEGATIVE); NITRITE, URINE AUTO NEGATIVE (NEGATIVE); PROTEIN, URINE AUTO NEGATIVE (NEGATIVE); RBC, URINE AUTO 1 /HPF (0-3); SPECIFIC GRAVITY URINE AUTO 1.029 (1.002-1.035); SQUAMOUS EPITHELIAL CELL UR AU 10 /HPF (0-6); URINE PREG TEST NEGATIVE (NEGATIVE); UROBILINOGEN, URINE AUTO 0.2 mg/dL (0.0-2.0); WBC, URINE AUTO 1 /HPF (0-3)
== END ==
LOC: M LAB REF 12:02
PROVIDERS: ATTEND Nurse Practitioner Family
DX: N39.46 Mixed incontinence (principal)

== ENCOUNTER → 2025-07-07 | Outpatient (CLI) | payer MEDICARE, MEDICAID ==
[~2025-07-07] MED LIST changes: +METHACHOLINE KIT (6 VIAL.NEB PREMIX) INH ONE
== END ==
LOC: M CARPUL 10:11
PROVIDERS: ATTEND Nurse Practitioner Adult Health
DX: R06.02 Shortness of breath (principal)
CPT/HCPCS: 94070; 95070; J7674

== ENCOUNTER → 2025-07-29 | Outpatient (CLI) | payer MEDICARE, MEDICAID ==
[~2025-07-29] MED LIST changes: +ALBU2.5V10 NEB; +MACR100C43 PO; -METHACHOLINE KIT (6 VIAL.NEB PREMIX) INH ONE; +OXYC1CAP2 PO
[2025-07-29 13:41] LABS: CALCIUM LEVEL 8.9 MG/DL (8.5-10.1); CARBON DIOXIDE LEVEL 34 MMOL/L (20-31); CHLORIDE LEVEL 102 MMOL/L (98-107); CHOLESTEROL LEVEL 169 MG/DL (<200); CHOLESTEROL RISK RATIO 3.19 (<5); CREATININE FOR GFR 0.66 MG/DL (0.55-1.30); GLOMERULAR FILTRATION RATE > 90.0 (>51); LDL CHOLESTEROL 95.7 MG/DL (<100); NON-HDL-C 116.1 MG/DL; POTASSIUM SERUM 4.6 MMOL/L (3.5-5.1); SODIUM LEVEL 141 MMOL/L (136-145); TRIGLYCERIDES LEVEL 102 MG/DL (<150)
[2025-07-29 14:07] LABS: ESTIMATED AVERAGE GLUCOSE 154.0 MG/DL (60-110)
== END ==
LOC: M LAB 12:03
PROVIDERS: ATTEND Nurse Practitioner Family
DX: E11.9 Type 2 diabetes mellitus without complications (principal); E66.813 Obesity, class 3

== ENCOUNTER 2025-08-06 23:59 | Emergency (ER) | payer MEDICARE, MEDICAID ==
[~2025-08-06] VITALS: Ht 175.3 cm; Wt 177.9 kg
[~2025-08-06 23:59] MED LIST changes: -ALBU2.5V10 NEB; -MACR100C43 PO; -OXYC1CAP2 PO
[2025-08-07 00:49] LABS: APPEARANCE, URINE HAZY (CLEAR); BACTERIA, URINE AUTO 1+ (NEGATIVE); BILIRUBIN, URINE AUTO NEGATIVE (NEGATIVE); BLOOD, URINE BLOOD 2+ (NEGATIVE); GLUCOSE, URINE (UA) AUTO 3+ mg/dL (NEGATIVE); KETONE, URINE AUTO NEGATIVE (NEGATIVE); LEUKOCYTE ESTERASE, URINE AUTO TRACE (NEGATIVE); NITRITE, URINE AUTO NEGATIVE (NEGATIVE); PROTEIN, URINE AUTO NEGATIVE (NEGATIVE); RBC, URINE AUTO 2 /HPF (0-3); SPECIFIC GRAVITY URINE AUTO 1.031 (1.002-1.035); SQUAMOUS EPITHELIAL CELL UR AU 4 /HPF (0-6); UROBILINOGEN, URINE AUTO 0.2 mg/dL (0.0-2.0); WBC, URINE AUTO 2 /HPF (0-3)
[2025-08-07] MEDS ORDERED: MACR100C43 PO (05:21)
[2025-08-07] MEDS: NITROFURANTOIN 100 MG CAP PO ONE (05:33)
[2025-08-07 05:35] VITALS: BP 118/58; TEMP 97; O2SAT 96
[2025-08-08] MEDS ORDERED: ALBU2.5V10 NEB (05:33)
== END 2025-08-07 05:35 | disposition home or self-care (01) ==
LOC: M ED 23:59
DX: S70.02XA Contusion of left hip, initial encounter (principal); N39.0 Urinary tract infection, site not specified; W01.0XXA Fall on same level from slipping, tripping and stumbling without subsequent striking against object, initial encounter; Y92.89 Other specified places as the place of occurrence of the external cause; Y93.89 Activity, other specified; Y99.8 Other external cause status; I10 Essential (primary) hypertension; E11.9 Type 2 diabetes mellitus without complications; E78.5 Hyperlipidemia, unspecified; F32.9 Major depressive disorder, single episode, unspecified; F20.9 Schizophrenia, unspecified

== ENCOUNTER 2025-08-08 01:39 | Emergency (ER) | payer MEDICARE, MEDICAID ==
[~2025-08-08] VITALS: Ht 175.3 cm; Wt 163.6 kg
[~2025-08-08 01:39] MED LIST changes: +MACR100C43 PO
[2025-08-08 01:56] VITALS: TEMP 97.5
[2025-08-08] MEDS: ALBUTEROL 90 MCG/ACT 8 GM HFA INHALER INH ONE (03:11)
[2025-08-08] MEDS: IPRATROPIUM 0.5 MG/ALBUTEROL 2.5 MG INH SOL UD 3 ML NEB ONE (03:11)
[2025-08-08 05:31] VITALS: BP 125/76
[2025-08-08] MEDS ORDERED: ALBU2.5V10 NEB (05:33)
[2025-08-08 05:39] VITALS: O2SAT 92
== END 2025-08-08 06:09 | disposition home or self-care (01) ==
LOC: M ED 01:39 → EDBD 01:39 → M ED 06:09
DX: F41.0 Panic disorder [episodic paroxysmal anxiety] (principal); F32.A Depression, unspecified; F25.9 Schizoaffective disorder, unspecified; Z79.899 Other long term (current) drug therapy; Z88.8 Allergy status to other drugs, medicaments and biological substances; Z91.040 Latex allergy status